=== PATIENT | female | born 1995 | race Caucasian/White ===

== ENCOUNTER 2016-10-04 13:36 | Outpatient (CLI) | payer OTHER ==
--- NOTE | 2016-10-04 15:53 | DIAGNOSTIC IMAGING REPORT ---
PROCEDURE: US 1ST TRIMESTER INDICATION: ob dates TECHNIQUE: Powell scale, color, and spectral Doppler transabdominal sonographic images of the first trimester gravid uterus were obtained. COMPARISON: None. FINDINGS: TRANSABDOMINAL SCANS: The gravid uterus is anteverted in position and contains a fundal gestational sac with a moderate residual response. No perigestational hemorrhage. The cervix is closed. A pole with an average crown-rump length of 30 mm is present. There is detectable cardiac activity in the fetus in a rate of 182 beats per minute. A yolk sac was visible. IMPRESSION: 1. Single living intrauterine with gestational age of 9 weeks and 6 days and estimated due date of 05/03/2017 2. Closed cervix and no perigestational hemorrhage.
== END 2016-10-04 23:00 ==
LOC: US SRH 13:36
DX: Z34.91 Encounter for supervision of normal pregnancy, unspecified, first trimester (principal); Z3A.09 9 weeks gestation of pregnancy

== ENCOUNTER 2016-11-16 15:48 | Observation (INO) | payer OTHER ==
[~2016-11-16] VITALS: Ht 162.6 cm; Wt 56.5 kg
--- NOTE | 2016-11-16 18:37 | DIAGNOSTIC IMAGING REPORT ---
PROCEDURE: US ABDOMEN ULTRASOUND-COMPLETE INDICATION: PAIN TECHNIQUE: Powell scale and color Doppler sonographic images of the abdomen were obtained without comparison. COMPARISON: OB ultrasound 10/04/16 FINDINGS: The liver is normal in size, contour, and echotexture. No mass or intrahepatic biliary dilatation. The gallbladder is normal without stones or sludge. The wall is normal thickness measuring 2.1 mm No pericholecystic fluid or Greenfield sign. The extrahepatic common duct is normal measuring 1.3 mm The visualized pancreas is normal without ductal dilatation or peripancreatic fluid collection. The abdominal aorta is normal in its course and caliber. The retrohepatic inferior vena cava is patent. There is appropriate hepatopetal flow in the portal vein. The right kidney measures 10.7 cm in length. The left kidney measures 11.5 cm in length. Both kidneys demonstrate normal morphology and cortical thickness without hydronephrosis, cyst, solid mass, or shadowing calculus. Color Doppler imaging demonstrates normal blood flow in each kidney. The spleen is normal in size measuring 10.2 cm in length. There is no perihepatic or perisplenic ascites. IMPRESSION: 1. Normal abdominal ultrasound.
--- NOTE | 2016-11-16 18:52 | ED NURSING NOTES ---
Clinical Report - Nurses [facility] [address] [place] [address] 11/16/2016 15:47 Patient: CLIFFORD CHI TRIAGE Triage time 16:01. Acuity: LEVEL 3. Chief Complaint: ABDOMINAL PAIN, NAUSEA and VOMITING. 16:01 11/16/16. 16:11/16/16. Alert. SEPSIS SCREEN: Sepsis Screen. Negative (no infection suspected/documented). --16:06 Gopal Caceres R.N. 16:01 11/16/16. BP: 126/86. HR: 99. RR: 20. O2 saturation: 100% on room air. Temp: 98.9 F (oral). Pain level now: 610. --16:06 Gopal Caceres R.N. Weight: 54.4 kg stated. Height/Length: 64 inches Per Patient. BMI: 20.6. --16:02 Gopal Caceres R.N. Medications Oral. --16:04 Gopal Caceres R.N. Doxepin HCl Oral. --16:09 Gopal Caceres R.N. Medication/allergy information source: the patient and patient's family. --16:06 Gopal Caceres R.N. Allergies No Known Drug Allergy. --16:03 Gopal Caceres R.N. History Arrived by private vehicle. Historian: family. Accompanied by family. Primary physician (Bita Mcdaniel-PCP). 16:01 11/16/16. ( Since 0300). She has had nausea, vomiting and diarrhea. Treatment TAPE WEAVER: None. PAST MEDICAL HX: Immunizations: up-to-date. Last normal menstrual period- End of Jun 2016. Currently : 16 weeks. SOCIAL HX: Never smoker. History of heavy drug use: marijuana. Recently used drugs just prior to arrival. No alcohol use. No recent travel. She has had contact with a sick family member. No infectious disease exposure. ABUSE ASSESSMENT: No report of abuse. FALL RISK ASSESSMENT: Fall risk assessment completed. No fall risk identified. NUTRITIONAL RISK ASSESSMENT: The nutritional risk assessment revealed no deficiencies. FUNCTIONAL ASSESSMENT: Functional assessment: no impairments noted. LEARNING NEEDS ASSESSMENT: The learning needs assessment revealed no barriers. SKIN INTEGRITY ASSESSMENT: Skin integrity risk assessment completed. No skin integrity risk identified. --16:06 Gopal Caceres R.N. PROBLEMS: Hypokalemia. Vomiting. Anxiety Reaction. Immunizations. --16:04 Gopal Caceres R.N. ADDITIONAL SURGERIES: no known surgeries. Assessment 16:11/16/16. --16:06 Gpoal Caceres R.N. Interventions 16:11/16/16. 16:11/16/16. ID and allergy band on patient. To treatment room. --16:06 Gopal Caceres R.N. PHYSICAL ASSESSMENT 16:11/16/16. Ambulatory to room. GENERAL / NEURO / PSYCH: Alert. Oriented X 4. Appears in pain. RESPIRATORY: Respirations not labored. CVS: Capillary refill less than 2 seconds. SKIN: Skin is warm and dry. --16:05 Gopal Caceres R.N. NURSING PROGRESS NOTES 16:11/16/16. The plan of care for this patient has been created. Patient gowned. Head of bed elevated. Reassurance given. Call light placed in reach. Side rails up x 2. Bed placed in lowest position. Brakes of bed on. --16:05 Gopal Caceres R.N. 16:11/16/16. Patient ready for evaluation- chart flagged and ED physician notified. --16:05 Gopal Caceres R.N. 16:11/16/2016 Site #1 started via IV in the right hand with an 20g angiocath, with aseptic technique and good blood return; one attempt. Blood drawn: rainbow set. Labeled in the presence of the patient and sent to the lab. Saline lock flushed with 10 mL saline. --16:17 Gopal Caceers R.N. 16:11/16/2016 Started bag #1 1000 mL IV Fluids IV NS (Saline); at 1000 mL/hr over 1 hour(s) via site #1. Allergies verified and confirmed 5 rights. IV patency established. IV site checked: no pain, redness, or swelling. IV flushed thoroughly pre- and post-medication administration. Completed per protocol. --16:17 Gopal Caceres R.N. 16:24 11/16/2016 Zofran (Ondansetron HCl) IVP 4 mg given over 2 minute(s) via site #1. Allergies verified and confirmed 5 rights. IV patency established. IV site checked: no pain, redness, or swelling. IV flushed thoroughly pre- and post-medication administration. IVP given by RN. --16:24 Gopal Caceres R.N. 16:24 11/16/16. ( FHT-160). --16:24 Gopal Caceres R.N. 16:58 11/16/2016 Ativan (LORazepam) IVP 0.5 mg given over 2 minute(s) via site #1. Allergies verified, confirmed 5 rights and sedative warning given to the patient. IV patency established. IV site checked: no pain, redness, or swelling. IV flushed thoroughly pre- and post-medication administration. IVP given by RN. --16:58 Gopal Caceres R.N. 16:58 11/16/2016 IV Fluids IV NS Discontinued: bag #1 infused. Total amount infused: 1000 mL. IV patency established. IV site checked: no pain, redness, or swelling. IV flushed thoroughly. --16:58 Gopal Caceres R.N. 16:59 11/16/2016 Started bag #2 1000 mL IV Fluids IV NS (Saline); at 1000 mL/hr over 1 hour(s) via site #1. Allergies verified and confirmed 5 rights. IV patency established. IV site checked: no pain, redness, or swelling. IV flushed thoroughly pre- and post-medication administration. Completed per protocol. --16:59 Gopal Caceres R.N. 17:00 11/16/16. BP: 117/72. HR: 91. RR: 18. O2 saturation: 100% on room air. Temp: 97.9 F (oral). --17:01 Gopal Caceres R.N. 17:01 11/16/16. --17:01 Gopal Caceres R.N. 17:48 11/16/2016 Ativan (LORazepam) IVP 0.5 mg given over 2 minute(s) via site #1. Allergies verified, confirmed 5 rights and sedative warning given. IV patency established. IV site checked: no pain, redness, or swelling. IV flushed thoroughly pre- and post-medication administration. IVP given by RN. --17:48 Gopal Caceres R.N. 17:48 11/16/2016 Zofran (Ondansetron HCl) IVP 4 mg given over 2 minute(s) via site #1. Allergies verified and confirmed 5 rights. IV patency established. IV site checked: no pain, redness, or swelling. IV flushed thoroughly pre- and post-medication administration. IVP given by RN. --17:48 Gopal Caceres R.N. 17:48 11/16/16. BP: 115/72. HR: 82. RR: 13. O2 saturation: 100% on room air. Temp: 98.5 F (oral). --17:48 Gopal Caceres R.N. 17:48 11/16/16. --17:48 Gopal Caceres R.N. 17:49 11/16/16. Patient and family informed about reason for wait and about plan of care. --17:49 Gopal Caceres R.N. 17:50 11/16/16. Pulse oximeter and NIBP monitor placed on patient; monitor alarms on. --17:50 Gopal Caceres R.N. 17:57 11/16/16. Patient and family informed about reason for wait and about plan of care. Patient waiting for diagnostic study to be done (US). --17:57 Gopal Caceres R.N. 18:26 11/16/16. ( US completed). --18:26 Gopal Caceres R.N. 18:32 11/16/16. BP: 109/72. HR: 91. RR: 14. O2 saturation: 100% on room air. --18:33 Gopal Caceres R.N. 18:33 11/16/16. --18:33 Gopal Caceres R.N. 18:33 11/16/16. Reassessment after medication administered. She is calm and resting quietly. Overall patient status- she states feels better. --18:33 Gopal Caceres R.N. 18:48 11/16/16. Patient informed about reason for wait and about plan of care (pt to be admitted for appendicitis). --18:49 Gopal Caceres R.N. 18:49 11/16/16. Patient waiting for admit bed. --18:49 Gopal Caceres R.N. 18:50 11/16/16. ( After meds, pt is sleeping on and off. Pt appears to be more comfortable, pt is sleeping on and off, Call light within reach.). --18:50 Gopal Caceres R.N. 18:50 11/16/16. Reassessment after medication administered. She is resting quietly and sleeping and has had no adverse reaction. Overall patient status is improved- she states feels better. --18:50 Gopal Caceres R.N. 18:51 11/16/16. ( Pt to call friend to update on pts status that she is going to be admitted.). --18:51 Gopal Caceres R.N. ( pt ambulates to restroom). --19:07 Kristin Mccormack R.N. 19:08 11/16/16. Care transferred and report given (Rose PEREYRA). --19:08 Gopla Caceres R.N. 20:08 11/16/2016 Ertapenem IVP 1 gm given over 30 minute(s) via site #1. Allergies verified and confirmed 5 rights. IV patency established. IV site checked: no pain, redness, or swelling. IV flushed thoroughly pre- and post-medication administration. IVP given by RN. --20:08 Shar Thompson 20:16 11/16/2016 IV Fluids IV NS Discontinued: infused upon discharge. Total amount infused: 1000 mL. IV patency established. IV site checked: no pain, redness, or swelling. IV flushed thoroughly. --20:16 Shar Thompson ( antibiotics complete at this time). --20:30 Shar Thompson DISPOSITION / DISCHARGE Report was given to a nurse via a phone call. Report included patient's care, treatment, medications, reviewed medication reconcilliation, and condition (including any recent changes or anticipated changes). All questions were answered. Report was acknowledged and care was transferred. --20:18 Shar Thompson 20:18 11/16/2016 Site #[address] upon admission; patent, no pain and no signs of infection or infiltration. --20:18 Shar Thompson Admitted to Acute Care. --20:18 Shar Thompson Transported via wheelchair by transport team. --20:21 Shar Thompson 20:21 11/16/16. BP: 112/67. HR: 72. RR: 18. O2 saturation: 99%. Temp: deferred. Pain level now: 09/30. --20:21 Shar Thompson Departure time: 20:38. --20:38 Shar Thompson Locked/Released at 11/16/2016 20:39 by Shar Thompson
--- NOTE | 2016-11-16 18:52 | ED ORDER SUMMARY ---
..... Patient: CLIFFORD CHI OrderSheet [facility] VisitID: [id number] [place] [address] 21y, F Registration Date/Time: 11/16/2016 ORDER SHEET Weight: 54.4 kg (stated) Allergies: No Known Drug Allergy GENERAL ORDERS: UA-Culture if indicated Urgent (16:17 11/16/2016 JBoardley R.N. per protocol) (Ack 16:19 KHoerner) (16:23 JBoardley R.N.) Urine Urgent (16:17 11/16/2016 JBoardley R.N. per protocol) (Ack 16:19 KHoerner) (16:23 JBoardley R.N.) CBC w Diff Urgent (16:17 11/16/2016 JBoardley R.N. per protocol) (Ack 16:19 SOFIYAoerner) (16:23 JBoardley R.N.) CMP Urgent (16:17 11/16/2016 JBoardley R.N. per protocol) (Ack 16:19 SOFIYAoerner) (16:23 JBoardley R.N.) Heart Tones (16:23 11/16/2016 JBoardley R.N. verbal order read back to Adolph Banks) (16:23 JBoardley R.N.) Serum Quantitative Urgent (17:34 11/16/2016 Adolph Banks) (Ack 17:48 SOFIYAoerolando) (17:49 JBoardley R.N.) US Abdomen Complete (Yes) Urgent (17:49 11/16/2016 Adolph Banks) (Ack 17:53 SOFIYAoerolando) (18:26 JBoardley R.N.) MEDICATION ORDERS: IV FLUIDS: IV NS : initial bolus none -, then 1000 mL/hr for X1 (NOW) (16:17 11/16/2016 JBoardley R.N. per protocol) (16:17 JBoardley R.N.) Zofran IV 4 mg (NOW) (16:23 11/16/2016 JBoardley R.N. verbal order read back to Adolph Banks) (16:24 Alice R.N.) Ativan IV 0.5 mg (HIGH ALERT MEDICATION, NOW) (16:53 11/16/2016 Adolph Banks) (16:58 JBoardley R.N.) IV NS : initial bolus none -, then 1000 mL/hr for X1 (NOW); Leighton (16:58 11/16/2016 JBoardley R.N. per protocol) (16:59 JBoardley R.N.) Ativan IV 0.5 mg (HIGH ALERT MEDICATION, NOW) (17:41 11/16/2016 Adolph Banks) (Ack 17:47 JBoardley R.N.) (17:48 JBoardley R.N.) Zofran IV 4 mg (NOW) (17:41 11/16/2016 Adolph Banks) (Ack 17:47 JBoardley R.N.) (17:48 JBoardley R.N.) Ertapenem IV 1 gm (NOW) (20:07 11/16/2016 Annette Myles written order Adolph Banks) (20:08 nAnette Myles) Orders per Penology Professor: ORDER SHEET NOTES: [Electronically signed by Rose Moody R.N. (20:39 11/16/2016)] [Electronically signed by Benji Carrasco Dr. (20:52 11/16/2016)] [Electronically locked/signed by Rose Moody R.N. (20:39 11/16/2016)]
--- NOTE | 2016-11-16 18:52 | ED ORDER SUMMARY ---
..... Patient: CLIFFORD CHI OrderSheet [facility] VisitID: [id number] [place] [address] 21y, F Registration Date/Time: 11/16/2016 ORDER SHEET Weight: 54.4 kg (stated) Allergies: No Known Drug Allergy GENERAL ORDERS: UA-Culture if indicated Urgent (16:17 11/16/2016 JBoardley R.N. per protocol) (Ack 16:19 KHoerner) (16:23 JBoardley R.N.) Urine Urgent (16:17 11/16/2016 JBoardley R.N. per protocol) (Ack 16:19 KHoerner) (16:23 JBoardley R.N.) CBC w Diff Urgent (16:17 11/16/2016 JBoardley R.N. per protocol) (Ack 16:19 SOFIYAoerner) (16:23 JBoardley R.N.) CMP Urgent (16:17 11/16/2016 JBoardley R.N. per protocol) (Ack 16:19 SOFIYAoerner) (16:23 JBoardley R.N.) Heart Tones (16:23 11/16/2016 JBoardley R.N. verbal order read back to Adolph Banks) (16:23 JBoardley R.N.) Serum Quantitative Urgent (17:34 11/16/2016 Adolph Banks) (Ack 17:48 SOFIYAoerolando) (17:49 JBoardley R.N.) US Abdomen Complete (Yes) Urgent (17:49 11/16/2016 Adolph Banks) (Ack 17:53 SOFIYAoerolando) (18:26 JBoardley R.N.) MEDICATION ORDERS: IV FLUIDS: IV NS : initial bolus none -, then 1000 mL/hr for X1 (NOW) (16:17 11/16/2016 JBoardley R.N. per protocol) (16:17 JBoardley R.N.) Zofran IV 4 mg (NOW) (16:23 11/16/2016 JBoardley R.N. verbal order read back to Adolph Banks) (16:24 Alice R.N.) Ativan IV 0.5 mg (HIGH ALERT MEDICATION, NOW) (16:53 11/16/2016 Adolph Banks) (16:58 JBoardley R.N.) IV NS : initial bolus none -, then 1000 mL/hr for X1 (NOW); Leighton (16:58 11/16/2016 JBoardley R.N. per protocol) (16:59 JBoardley R.N.) Ativan IV 0.5 mg (HIGH ALERT MEDICATION, NOW) (17:41 11/16/2016 Adolph Banks) (Ack 17:47 JBoardley R.N.) (17:48 JBoardley R.N.) Zofran IV 4 mg (NOW) (17:41 11/16/2016 Adolph Banks) (Ack 17:47 JBoardley R.N.) (17:48 JBoardley R.N.) Ertapenem IV 1 gm (NOW) (20:07 11/16/2016 Annette Myles written order Adolph Banks) (20:08 Annette Myles) Orders per Rasper Machine Operator: ORDER SHEET NOTES: [Electronically signed by Rose Moody R.N. (20:39 11/16/2016)] [Electronically signed by Benji Carrasco Dr. (20:52 11/16/2016)] [Electronically locked/signed by Rose Moody R.N. (20:39 11/16/2016)]
--- NOTE | 2016-11-16 18:52 | ED CLINICAL REPORT ---
Clinical Report - Physicians/Mid Levels [facility] [address] [place] [address] 11/16/2016 15:47 Patient: CLIFFORD CHI Time Seen: 16:02; initial patient contact. Arrived- By private vehicle. Historian- patient. HISTORY OF PRESENT ILLNESS Chief Complaint: VOMITING and DIARRHEA. This started last night and is still present (persistent). It was abrupt in onset and has been intermittent. The patient has had nausea, vomiting and diarrhea. No black stools or bloody stools. She has had moderate, crampy, intermittent abdominal pain. The pain is described as located in the central area of the abdomen and associated with nausea, vomiting and diarrhea. No radiation of abdominal pain to the back. The illness is described as moderate. Similar symptoms previously: Many times. Recent medical care: Not recently seen/assessed. REVIEW OF SYSTEMS No fever or difficulty with urination. All systems otherwise negative, except as recorded above. PAST HISTORY Hypokalemia. Vomiting. Anxiety Reaction. SOCIAL HISTORY Never smoker. History of drug use: marijuana. Recently used drugs today. No alcohol use. ADDITIONAL NOTES The nursing notes have been reviewed. PHYSICAL EXAM Vital Signs: 11/16/2016 16:01 BP: 126/86. HR: 99. RR: 20. O2 saturation: 100%. Temp: 98.9 F. Pain level now: 6/10. Have been reviewed as normal. Appearance: Alert. Oriented X3. Patient in mild distress. Eyes: Eyes normal inspection. ENT: Dry mucous membranes present. CVS: Normal heart rate and rhythm. Heart sounds normal. Respiratory: No respiratory distress. Breath sounds normal. Abdomen: Soft. Mild tenderness in the periumbilical area and suprapubic area with guarding present. No rebound tenderness or Greenfield's, obturator or psoas sign present. Bowel sounds normal. No organomegaly. No mass. Back: Normal inspection. No CVA tenderness. Skin: Skin warm and dry. Normal skin color. No rash. Extremities: No lower extremity edema. Neuro: Oriented X 3. LABS, X-RAYS, AND EKG Abdominal Sonogram: Normal study. The gallbladder is normal. Common duct is normal. Normal liver. Pancreas normal. Aorta normal. Kidney normal. Spleen normal. No free fluid. (Appendix not visualized.). The study was interpreted by the radiologist and discussed with the radiologist. Interpretation time: 18:46. Laboratory Tests: UA-Culture if indicated: (TRISTAN: 11/16/2016 16:49) ( [facility] 11/16/2016 17:42) Final results Test Result Flag Units (Reference) URINE COLOR YELLOW URINE APPEARANCE CLEAR URINE GLUCOSE NEGATIVE (NEGATIVE) URINE BILIRUBIN NEGATIVE (NEGATIVE) URINE KETONE 3+ (NEGATIVE) URINE SPECIFIC GRAVITY 1.020 (1.010-1.030) URINE PH 7.5 (5.0-8.0) URINE PROTEIN 1+ (NEGATIVE) URINE UROBILINOGEN 0.2 EU/dL (0.2-1.0) URINE NITRITE NEGATIVE (NEGATIVE) URINE BLOOD NEGATIVE (NEGATIVE) URINE LEUK ESTERASE NEGATIVE (NEGATIVE) URINE RBC NONE SEEN rbc/hpf (0-1) URINE WBC 0-1 wbc/hpf (0-1) URINE EPITHELIAL CELLS 1-3 EPI/hpf (0-5) URINE BACTERIA TRACE (<1+) (NONE SEEN) URINE COMMENT CULT NOT INDICATED 1+ MUCUSURINE CULTURES ARE SET-UP BASED ON THE FOLLOWING CRITERIA:POSITIVE NITRITEPOSITIVE LEUKOCYTE ESTERASEGREATER THAN 10 WHITE BLOOD CELLSMODERATE (2+) OR GREATER BACTERIA Urine: (TRISTAN: 11/16/2016 16:49) ( [facility] 11/16/2016 17:21) Final results Test Result Flag Units (Reference) URINE POSITIVE CBC w Diff: (TRISTAN: 11/16/2016 16:00) ( [facility] 11/16/2016 16:27) Final results Test Result Flag Units (Reference) WHITE BLOOD COUNT 16.8 H K/uL (4.5-11.5) RED BLOOD COUNT 4.11 M/uL (4.00-5.20) HEMOGLOBIN 12.2 gm/dL (12.0-16.0) HEMATOCRIT 36.1 % (36.0-46.0) MEAN CELL VOLUME 88 fL (80-100) MEAN CORPUSCULAR HGB 30 pg (26-34) MEAN CORPUSCULAR HGB CONC 34 g/dL (31-37) RED CELL DISTRIBUTION WIDTH 15.2 H % (11.6-14.8) PLATELET COUNT 230 K/uL (150-400) NEUTROPHIL % 91.9 H % (50-75) LYMPH % 7.2 L % (25-40) MONO % 0.8 L % (3-14) EOSINOPHIL % 0 % (0-4) BASOPHIL % 0.1 % (0-2) CMP: (TRISTAN: 11/16/2016 16:00) ( MsgRcvd 11/16/2016 16:39) Final results Test Result Flag Units (Reference) GLUCOSE 109 mg/dL (70-110) BUN 6 L mg/dL (7-18) CREATININE 0.6 mg/dL (0.6-1.3) Estimated GFR >60 mL/min Estimated GFR- >60 mL/min Note: Persistent reduction over 3 months in eGFR<60 mL/min/1.73 m2 defines CKD. Patients with eGFR values>=60 mL/min/1.73 m2 may also have CKD if evidence ofpersistent proteinuria. Additional information may be foundat www.kidney.org. SODIUM 139 mmol/L (136-145) POTASSIUM 3.7 mmol/L (3.5-5.1) CHLORIDE 102 mmol/L (98-107) CARBON DIOXIDE 21 mmol/L (21-32) CALCIUM 8.8 mg/dL (8.5-10.1) TOTAL PROTEIN 7.6 g/dL (6.4-8.2) ALBUMIN 3.7 g/dL (3.3-5.0) BILIRUBIN, TOTAL 0.3 mg/dL (0.0-1.0) ALKALINE PHOSPHATASE 62 U/L (46-116) AST (SGOT) 12 L U/L (15-37) ALT (SGPT) 18 U/L (12-78) . PROGRESS AND PROCEDURES Discussed case with on-call health care provider, (call returned 18:40 Dr. Ramirez. Discussed nl U/S, he will place in obs and start his appy orders and consult Ob.). Reviewed test results and need for additional work-up. Orders dictated to me. Health care provider will see patient in hospital. Discussed case with on-call health care provider, (call returned 18:50 Dr. Aliyah Mir, made aware he was consulted by Dr. Ramirez on the case.). Reviewed test results and need for additional work-up. Health care provider will see patient in hospital. Consult obtained from surgery. call returned 17:52 Dr. Ramirez, recommended U/S. Disposition: Observation in Acute Care. INSTRUCTIONS Follow-up: Screening today revealed the patient's blood pressure to be in the normal range. (Electronically signed by Benji Carrasco Dr. 11/16/2016 20:52)
--- NOTE | 2016-11-16 20:26 | History & Physical Report ---
Admission Admit Date 11/16/16 Information Source Information Source: Self Reliability: Good History Chief Complaint Nausea and vomiting History of Present Illness 21-year-old female 1 para 0 AB 0 who is 16 weeks gestation. Presently not being followed by SAMEER Singh Who presented to the emergency room with a two- day history of severe nausea and vomiting. Patient states that she cannot keep anything down. Patient states that she lost weight. Patient states that she's had some diarrhea today. Patient states that she has no particular abdominal pain just soreness. Patient states that it does not hurt to walk or cough or move around. Patient states that she is very anxious. Patient is quite tearful during our conversation. We were asked to evaluate the patient because of her elevated white count and rule out appendicitis. An ultrasound was ordered by the emergency room department. Unfortunately the salvage winder and inspector did not evaluate the right lower quadrant apparently and the appendix was not visualized. MEDICAL/SURGICAL HISTORY: [place] teeth extraction. Patient is presently not being followed by a ferry pilot for her . FAMILY HISTORY: Mother is in her mid 40s in good health Father in his early 50s in good health. 3 brothers 2 sisters alive and well Patient History 1. 2. Leukocytosis 3. Abdominal pain Social History The patient is single. This is her first . Patient does not smoke. Does not drink alcohol. Patient smokes marijuana on a daily basis. Patient is presently unemployed. Patient presently living at home with her parents. Medications and Allergies Medications Patient is on an antidepressant medication Current Medications Sig/Johnny Start time Last Medication Dose Route Stop Time Status Admin Metoclopramide HCl 10 MG Q6HR 11/17 0000 AC IV Famotidine/Sodium 50 ML Q12HR 11/16 2099 AC Chloride IV Potassium Chloride 20 MEQ Q7H 11/16 2029 AC Lactated Ringer's 1,000 ML IV Meperidine HCl 12.5 MG Q30MIN PRN 11/16 1944 AC IV Ondansetron HCl 4 MG Q6H PRN 11/16 1944 AC IV Allergies Coded Allergies: NKA (11/16/16) Review of Systems Other Ab0 menarche age 11. According to the patient her last menstrual cycle was in June 2016. Patient has not yet had a Pap smear. Patient denies any history of of hepatitis, jaundice, rheumatic fever, heart murmurs requiring antibodies, or bleeding tendencies. Patient is a long-standing history of anxiety and depression. Physical Exam Vital Signs / I&Os Blood pressure 126/86 pulse 99 respirations 20 temperature 90.8 in the emergency room General Appearance Alert, Oriented X3, Cooperative, No acute distress, patient seems very anxious and tearful. HEENT PERRLA, EOMI Lungs Clear to auscultation Neck No JVD, No masses, No thyromegaly Cardiovascular Regular rate and rhythm Abdomen Normal bowel sounds, Soft, Nondistended. Palpable gravid uterus approximately 2-3 fingerbreadths below the umbilicus Tenderness to very deep palpation right lower quadrant. No guarding Negative Rovsing sign. Extremities No edema, no cyanosis Skin no cyanosis Neurological No lateralizing signs Psych/Mental Status anxious LAB Results Laboratory Tests 11/16 11/16 11/16 11/16 1600 1649 1649 1833 Chemistry Plasma Sodium (136 - 145 mmol/L) 139 Plasma Potassium (3.5 - 5.1 mmol/L) 3.7 Plasma Chloride (98 - 107 mmol/L) 102 CO2 (Enzymatic) (21 - 32 mmol/L) 21 BUN (7 - 18 mg/dL) 6 Creatinine (0.6 - 1.3 mg/dL) 0.6 Est GFR ( Amer) (mL/min) >60 Est GFR (Non-Af Amer) (mL/min) >60 Glucose (70 - 110 mg/dL) 109 Plasma Calcium (8.5 - 10.1 mg/dL) 8.8 Total Bilirubin (0.0 - 1.0 mg/dL) 0.3 AST (15 - 37 U/L) 12 ALT (12 - 78 U/L) 18 Alkaline Phosphatase (46 - 116 U/L) 62 Total Protein (6.4 - 8.2 g/dL) 7.6 Albumin (3.3 - 5.0 g/dL) 3.7 Beta HCG, Quant (mIU/mL) 16997 Hematology WBC (4.5 - 11.5 K/uL) 16.8 RBC (4.00 - 5.20 M/uL) 4.11 Hgb (12.0 - 16.0 gm/dL) 12.2 Hct (36.0 - 46.0 %) 36.1 MCV (80 - 100 fL) 88 MCH (26 - 34 pg) 30 RDW (11.6 - 14.8 %) 15.2 Neut % (Auto) (50 - 75 %) 91.9 Lymph % (Auto) (25 - 40 %) 7.2 Benson % (Auto) (3 - 14 %) 0.8 Eos % (Auto) (0 - 4 %) 0 Baso % (Auto) (0 - 2 %) 0.1 Plt Count, EDTA (150 - 400 K/uL) 230 PUBS MCHC (31 - 37 g/dL) 34 Urines Urine Color YELLOW Urine Appearance CLEAR Urine pH (5.0 - 8.0) 7.5 Ur Specific [place] (1.010 - 1.030) 1.020 Urine Protein (NEGATIVE) 1+ Urine Ketones (NEGATIVE) 3+ Urine Blood (NEGATIVE) NEGATIVE Urine Nitrite (NEGATIVE) NEGATIVE Urine Bilirubin (NEGATIVE) NEGATIVE Urine Urobilinogen (0.2 - 1.0 EU/dL) 0.2 Ur Leukocyte Esterase (NEGATIVE) NEGATIVE Urine RBC (0 - 1 rbc/hpf) NONE SEEN Urine WBC (0 - 1 wbc/hpf) 0-1 Ur Epithelial Cells (0 - 5 EPI/hpf) 1-3 Urine Bacteria (NONE SEEN) TRACE (<1+) Urine Glucose (NEGATIVE) NEGATIVE Urine Test POSITIVE Urine Comment CULT NOT INDICATED Imaging Ultrasound of the abdomen intraoperative as normal. It is unclear whether the patient right lower quadrant was visualized and inspected for acute appendicitis. Assessment and Plan Problem List 1. Abdominal pain Plan Abdominal pain at this point history and physical examination are consistent with acute appendicitis. We will admit the patient hydrate her and repeat a white count in the morning white count is still elevated , this could be followed by a MRI to rule out appendicitis. 2. Plan 16 week gestation. I have asked the R OB on-call physician to evaluate the patient and perhaps see her in the clinic so that she might obtain OB care. 3. Leukocytosis Plan Leukocytosis perhaps related to her nausea and vomiting/stress. We'll repeat CBC in a.m.
--- NOTE | 2016-11-16 20:28 | History & Physical Report ---
History Chief Complaint Abdominal pain Medications and Allergies Medications Current Medications Sig/Johnny Start time Last Medication Dose Route Stop Time Status Admin Metoclopramide HCl 10 MG Q6HR 11/17 0000 AC 11/17 IV 0036 Famotidine/Sodium 50 ML Q12HR 11/16 2100 AC 11/16 Chloride IV 2216 Potassium Chloride 20 MEQ Q7H 11/16 2029 AC 11/17 Lactated Ringer's 1,000 ML IV 0624 Meperidine HCl 12.5 MG Q30MIN PRN 11/16 1944 IV Ondansetron HCl 4 MG Q6H PRN 11/16 1944 IV Allergies Coded Allergies: NKA (11/16/16)
--- NOTE | 2016-11-16 20:52 | ED MED RECONCILIATION SUMMARY ---
Patient: CLIFFORD CHI Medication Reconciliation Report [facility] VisitID: [id number] [address] [place] [address] 21y, F Registration Date/Time: 11/16/2016 Weight: 54.4 kg Height/Length: 64 in. BMI: 20.6 ALLERGIES: No Known Drug Allergy The patient's Home Medications are listed below: THE FOLLOWING MEDICATIONS NEED TO BE RECONCILED: Doxepin HCl Oral Oral The source(s) of the original Home Medication information: patient's family member patient The following Medications were given to the patient in the Emergency Department: IV NS IV Fluids bolus 0, then 1000 mL/hr, administered: 11/16/2016 4:17:00 PM Zofran [IVP] IVP 4 mg, administered: 11/16/2016 4:24:00 PM Ativan [IVP] IVP 0.5 mg, administered: 11/16/2016 4:58:00 PM IV NS IV Fluids bolus 0, then 1000 mL/hr, administered: 11/16/2016 4:59:00 PM Ativan [IVP] IVP 0.5 mg, administered: 11/16/2016 5:48:00 PM Zofran [IVP] IVP 4 mg, administered: 11/16/2016 5:48:00 PM Ertapenem [IVP] IVP 1 gm, administered: 11/16/2016 8:08:00 PM The following Medications were prescribed to the patient: None.
--- NOTE | 2016-11-16 20:52 | ED MAR SUMMARY ---
..... Medication Administration Record [facility] [address] [place] [address] Patient: CLIFFORD CHI Visit ID: [id number] 21y, F Weight: 54.4 kg Height/Length: 64 in BMI: 20.6 ALLERGIES: No Known Drug Allergy Start 16:17 11/16/2016 Gopal Caceres R.N., Stop 16:58 11/16/2016 Gopal Caceres R.N. Medication Administered: IV NS (SALINE), Dose: IV Fluids over 1 hour(s), Rate: 1000 mL/hr, Dispensed: 1000 mL bag, Site: #1 right hand. Medication Ordered: IV NS : initial bolus none -, then 1000 mL/hr for X1 (NOW). Given 16:24 11/16/2016 Gopal Caceres R.N. Medication Administered: ZOFRAN [IVP] (ONDANSETRON HCL), Dose: 4 mg IVP over 2 minute(s), Site: #1 right hand. Medication Ordered: Zofran IV 4 mg (NOW). Given 16:58 11/16/2016 Gopal Caceres R.N. Medication Administered: ATIVAN [IVP] (LORAZEPAM), Dose: 0.5 mg IVP over 2 minute(s), Site: #1 right hand. Medication Ordered: Ativan IV 0.5 mg (HIGH ALERT MEDICATION, NOW). Start 16:59 11/16/2016 Gopal Caceres R.N., Stop 20:16 11/16/2016 Shar Thompson Medication Administered: IV NS (SALINE), Dose: IV Fluids over 1 hour(s), Rate: 1000 mL/hr, Dispensed: 1000 mL bag, Site: #1 right hand. Medication Ordered: IV NS : initial bolus none -, then 1000 mL/hr for X1 (NOW); Leighton. Given 17:48 11/16/2016 Gopal Caceres R.N. Medication Administered: ATIVAN [IVP] (LORAZEPAM), Dose: 0.5 mg IVP over 2 minute(s), Site: #1 right hand. Medication Ordered: Ativan IV 0.5 mg (HIGH ALERT MEDICATION, NOW). Given 17:48 11/16/2016 Gopal Caceres RTeja Medication Administered: ZOFRAN [IVP] (ONDANSETRON HCL), Dose: 4 mg IVP over 2 minute(s), Site: #1 right hand. Medication Ordered: Zofran IV 4 mg (NOW). Given 20:08 11/16/2016 Shar Thompson Medication Administered: ERTAPENEM [IVP], Dose: 1 gm IVP over 30 minute(s), Site: #1 right hand. Medication Ordered: Ertapenem IV 1 gm (NOW).
--- NOTE | 2016-11-16 20:52 | ED DISCHARGE INSTRUCTIONS ---
Patient: CLIFFORD CHI General Instructions [facility] VisitID: [id number] [address] [place] [address] 21y, F Registration Date/Time: 11/16/2016 INSTRUCTIONS Follow-up: Screening today revealed the patient's blood pressure to be in the normal range. (Electronically signed by Benji Carrasco Dr. 11/16/2016 20:52)
--- NOTE | 2016-11-16 20:52 | ED DISCHARGE INSTRUCTIONS ---
Patient: CLIFFORD CHI General Instructions [facility] VisitID: [id number] [address] [place] [address] 21y, F Registration Date/Time: 11/16/2016 INSTRUCTIONS Follow-up: Screening today revealed the patient's blood pressure to be in the normal range. (Electronically signed by Benji Carrasco Dr. 11/16/2016 20:52)
--- NOTE | 2016-11-16 20:52 | ED MAR SUMMARY ---
..... Medication Administration Record [facility] [address] [place] [address] Patient: CLIFFORD CHI Visit ID: [id number] 21y, F Weight: 54.4 kg Height/Length: 64 in BMI: 20.6 ALLERGIES: No Known Drug Allergy Start 16:17 11/16/2016 Gopal Caceres R.N., Stop 16:58 11/16/2016 Gopal Caceres R.N. Medication Administered: IV NS (SALINE), Dose: IV Fluids over 1 hour(s), Rate: 1000 mL/hr, Dispensed: 1000 mL bag, Site: #1 right hand. Medication Ordered: IV NS : initial bolus none -, then 1000 mL/hr for X1 (NOW). Given 16:24 11/16/2016 Gopal Caceres R.N. Medication Administered: ZOFRAN [IVP] (ONDANSETRON HCL), Dose: 4 mg IVP over 2 minute(s), Site: #1 right hand. Medication Ordered: Zofran IV 4 mg (NOW). Given 16:58 11/16/2016 Gopal Caceres R.N. Medication Administered: ATIVAN [IVP] (LORAZEPAM), Dose: 0.5 mg IVP over 2 minute(s), Site: #1 right hand. Medication Ordered: Ativan IV 0.5 mg (HIGH ALERT MEDICATION, NOW). Start 16:59 11/16/2016 Gopal Caceres R.N., Stop 20:16 11/16/2016 Shar Thompson Medication Administered: IV NS (SALINE), Dose: IV Fluids over 1 hour(s), Rate: 1000 mL/hr, Dispensed: 1000 mL bag, Site: #1 right hand. Medication Ordered: IV NS : initial bolus none -, then 1000 mL/hr for X1 (NOW); Leighton. Given 17:48 11/16/2016 Gopal Caceres R.N. Medication Administered: ATIVAN [IVP] (LORAZEPAM), Dose: 0.5 mg IVP over 2 minute(s), Site: #1 right hand. Medication Ordered: Ativan IV 0.5 mg (HIGH ALERT MEDICATION, NOW). Given 17:48 11/16/2016 Gopal Caceres RTeja Medication Administered: ZOFRAN [IVP] (ONDANSETRON HCL), Dose: 4 mg IVP over 2 minute(s), Site: #1 right hand. Medication Ordered: Zofran IV 4 mg (NOW). Given 20:08 11/16/2016 Shar Thompson Medication Administered: ERTAPENEM [IVP], Dose: 1 gm IVP over 30 minute(s), Site: #1 right hand. Medication Ordered: Ertapenem IV 1 gm (NOW).
--- NOTE | 2016-11-16 20:52 | ED MED RECONCILIATION SUMMARY ---
Patient: CLIFFORD CHI Medication Reconciliation Report [facility] VisitID: [id number] [address] [place] [address] 21y, F Registration Date/Time: 11/16/2016 Weight: 54.4 kg Height/Length: 64 in. BMI: 20.6 ALLERGIES: No Known Drug Allergy The patient's Home Medications are listed below: THE FOLLOWING MEDICATIONS NEED TO BE RECONCILED: Doxepin HCl Oral Oral The source(s) of the original Home Medication information: patient's family member patient The following Medications were given to the patient in the Emergency Department: IV NS IV Fluids bolus 0, then 1000 mL/hr, administered: 11/16/2016 4:17:00 PM Zofran [IVP] IVP 4 mg, administered: 11/16/2016 4:24:00 PM Ativan [IVP] IVP 0.5 mg, administered: 11/16/2016 4:58:00 PM IV NS IV Fluids bolus 0, then 1000 mL/hr, administered: 11/16/2016 4:59:00 PM Ativan [IVP] IVP 0.5 mg, administered: 11/16/2016 5:48:00 PM Zofran [IVP] IVP 4 mg, administered: 11/16/2016 5:48:00 PM Ertapenem [IVP] IVP 1 gm, administered: 11/16/2016 8:08:00 PM The following Medications were prescribed to the patient: None.
[2016-11-16 20:58] VITALS: BP 118/77
[2016-11-16] MEDS ORDERED: PRENATAL VITAMINS PO (21:11)
[2016-11-16] MEDS ORDERED: DOXEPIN HCL10 MG PO (21:12)
--- NOTE | 2016-11-16 21:49 | NUR ---
PT ARRIVED TO ROOM 209A AROUND 2044 VIA WHEELCHAIR AND FACILITY TECH ESCORT FROM ED. LOTS OF FAMILY AT BEDSIDE. A&OX4. C/O ABDOMINAL PAIN 09/30 PAIN. C/O NAUSEA WITHOUT EMESIS. ZOFRAN NOT DUE UNTIL 2244. WARM BLANKETS GIVEN. PT REQUESTED TO SHOWER. PERSONAL BELONGINGS IN CLOSET. TM.
[2016-11-16 23:34] VITALS: BP 100/53
--- NOTE | 2016-11-17 02:02 | NUR ---
PT. IS RESTING QUIETLY IN BED AT THIS TIME, IS NOT IN DISTRESS. DENIES NAUSEA/ABDOMINAL PAIN AT THIS TIME. BOYFRIEND IS AT BEDSIDE, PT. HAS BEEN CALM SO FAR THIS SHIFT AND RESTING. ASSESSMENT COMPLETED. IVF RUNNING WITHOUT ISSUES. WCTM.
--- NOTE | 2016-11-17 02:07 | NUR ---
PATIENT'S BOYFRIEND KNOWS THAT IF PT. GETS A ROOM MATE, HE WILL NEED TO LEAVE VISITING HOURS ARE OVER, OR HE CAN STAY IN THE FAMILY/VISITOR WAITING AREA.
[2016-11-17 04:39] VITALS: BP 107/67
--- NOTE | 2016-11-17 06:12 | Progress Note ---
Subjective General 22-year-old female admitted with nausea and vomiting. According to the patient the nausea and vomiting has resolved all with IV hydration. Patient is not experiencing any abdominal pain. Patient is very hungry. Physical Exam Vital Signs / I&Os Vital Signs Date Time Temp Pulse Resp B/P Pulse O2 O2 Flow FiO2 Ox Delivery Rate 11/17 0439 98.1 89 18 107/67 98 Room Air 11/16 2334 85 16 100/53 100 Room Air 11/168 98.1 90 18 118/77 100 Room Air I&O 11/16 0800 11/16 1600 11/17 0000 Intake Total 0 Output Total 375 Balance -375 General Appearance Alert, Oriented X3, No acute distress Lungs Clear to auscultation Neck No JVD Cardiovascular Regular rate and rhythm Abdomen Normal bowel sounds, Soft, No tenderness Extremities No edema Skin warm and dry Neurological No lateralizing signs Psych/Mental Status Mood normal LAB Results Laboratory Tests 11/16 11/16 11/16 11/16 1600 1649 1649 1833 Chemistry Plasma Sodium (136 - 145 mmol/L) 139 Plasma Potassium (3.5 - 5.1 mmol/L) 3.7 Plasma Chloride (98 - 107 mmol/L) 102 CO2 (Enzymatic) (21 - 32 mmol/L) 21 BUN (7 - 18 mg/dL) 6 Creatinine (0.6 - 1.3 mg/dL) 0.6 Est GFR ( Amer) (mL/min) >60 Est GFR (Non-Af Amer) (mL/min) >60 Glucose (70 - 110 mg/dL) 109 Plasma Calcium (8.5 - 10.1 mg/dL) 8.8 Total Bilirubin (0.0 - 1.0 mg/dL) 0.3 AST (15 - 37 U/L) 12 ALT (12 - 78 U/L) 18 Alkaline Phosphatase (46 - 116 U/L) 62 Total Protein (6.4 - 8.2 g/dL) 7.6 Albumin (3.3 - 5.0 g/dL) 3.7 Beta HCG, Quant (mIU/mL) 85833 Hematology WBC (4.5 - 11.5 K/uL) 16.8 RBC (4.00 - 5.20 M/uL) 4.11 Hgb (12.0 - 16.0 gm/dL) 12.2 Hct (36.0 - 46.0 %) 36.1 MCV (80 - 100 fL) 88 MCH (26 - 34 pg) 30 RDW (11.6 - 14.8 %) 15.2 Neut % (Auto) (50 - 75 %) 91.9 Lymph % (Auto) (25 - 40 %) 7.2 [place] % (Auto) (3 - 14 %) 0.8 Eos % (Auto) (0 - 4 %) 0 Baso % (Auto) (0 - 2 %) 0.1 Plt Count, EDTA (150 - 400 K/uL) 230 PUBS MCHC (31 - 37 g/dL) 34 Urines Urine Color YELLOW Urine Appearance CLEAR Urine pH (5.0 - 8.0) 7.5 Ur Specific [place] (1.010 - 1.030) 1.020 Urine Protein (NEGATIVE) 1+ Urine Ketones (NEGATIVE) 3+ Urine Blood (NEGATIVE) NEGATIVE Urine Nitrite (NEGATIVE) NEGATIVE Urine Bilirubin (NEGATIVE) NEGATIVE Urine Urobilinogen (0.2 - 1.0 EU/dL) 0.2 Ur Leukocyte Esterase (NEGATIVE) NEGATIVE Urine RBC (0 - 1 rbc/hpf) NONE SEEN Urine WBC (0 - 1 wbc/hpf) 0-1 Ur Epithelial Cells (0 - 5 EPI/hpf) 1-3 Urine Bacteria (NONE SEEN) TRACE (<1+) Urine Glucose (NEGATIVE) NEGATIVE Urine Test POSITIVE Urine Comment CULT NOT INDICATED 11/17 0525 Hematology WBC (4.5 - 11.5 K/uL) 13.2 RBC (4.00 - 5.20 M/uL) 3.66 Hgb (12.0 - 16.0 gm/dL) 10.9 Hct (36.0 - 46.0 %) 32.0 MCV (80 - 100 fL) 87 MCH (26 - 34 pg) 30 RDW (11.6 - 14.8 %) 15.1 Neut % (Auto) (50 - 75 %) 77.8 Lymph % (Auto) (25 - 40 %) 17.2 [place] % (Auto) (3 - 14 %) 4.7 Eos % (Auto) (0 - 4 %) 0.1 Baso % (Auto) (0 - 2 %) 0.2 Plt Count, EDTA (150 - 400 K/uL) 200 PUBS MCHC (31 - 37 g/dL) 34 Assessment and Plan Problem List 1. Abdominal pain Plan Abdominal pain has resolved. No longer having nausea and vomiting. We'll start feeding today. If patient tolerates will discharge home 2. Plan 16 weeks gestation by history. Patient will need to followup with OB as an outpatient. 3. Leukocytosis Plan Patient's white count is still slightly elevated. But she has stable vital signs and comfortable and hungry I doubt this is an issue at the present time
[2016-11-17 06:40] VITALS: BP 104/69
--- NOTE | 2016-11-17 10:24 | Provider's Discharge Care Plan ---
Problem, Goal, Plan Problem List 1. Abdominal pain Goals: Improve function Instructions: Follow up as directed, Take meds as directed, Stop smoking
--- NOTE | 2016-11-17 10:24 | Provider's Discharge Care Plan ---
Problem, Goal, Plan Problem List 1. Abdominal pain Goals: Improve function Instructions: Follow up as directed, Take meds as directed, Stop smoking
[2016-11-17 10:46] VITALS: BP 104/63
--- NOTE | 2016-11-17 12:24 | NUR ---
PATIENT TOLERATED PO FOODS WITH NO NAUSEA AFTER 1 EPISODE OF NAUSEA THIS A.M., PATIENT REPORTS THAT SHE IS FEELING MUCH BETTER AND IS READY TO COME. PATIENT AND HER BOYFRIEND VERBALIZED UNDERSTANDING OF DC INSTRUCTIONS, REC'D DC PACKET AND STATES THAT SHE HAS NO FURTHER QUESTIONS AT THIS TIME. IV DC'D AND CATHETER TIP INTACT. ESCORTED OUT BY SHIRRER.
--- NOTE | 2016-11-17 19:40 | CONSULTATION REPORT ---
DATE OF CONSULTATION: 11/17/2016 CHIEF COMPLAINT: 1. Nausea and vomiting with a 16-week , suspicious for gastrointestinal etiology HISTORY OF PRESENT ILLNESS: The patient was seen in the emergency department complaining of nausea and vomiting. She was noted to be 16 weeks , coming over from [place]. She is seeing a PA-Amrit there, Kaykay Quezada, for primary care and early . Initial evaluation in the emergency department by physician showed an elevated white count of 16,000-17,000 with a left shift, neutrophils noted, no bands. Dr. Ramirez was assigned the patient and I have requested a consultation. I talked to the patient in the emergency department and later she was transferred to the second floor. This morning, she was evaluated and seen to be doing much better. IMPRESSION: 1. Hpyperemesis gravidarum PLAN: Dr. Ramirez then cleared her and evaluated the patient with some information about and follow up, also types of medicines to take. She has been given some Zofran and information for her diabetes and other supplements, [id number] medications were given to the patient, she understands and she was given information on obstetric clinics including ours, the 3 family practice [facility], as well as other [facility] physicians at the [facility]. The patient was to be discharged home with warnings and precautions by Dr. Ramirez.
--- NOTE | 2016-11-17 19:40 | CONSULTATION REPORT ---
DATE OF CONSULTATION: 11/17/2016 CHIEF COMPLAINT: 1. Nausea and vomiting with a 16-week , suspicious for gastrointestinal etiology HISTORY OF PRESENT ILLNESS: The patient was seen in the emergency department complaining of nausea and vomiting. She was noted to be 16 weeks , coming over from [place]. She is seeing a PA-Amrit there, Kaykay Quezada, for primary care and early . Initial evaluation in the emergency department by physician showed an elevated white count of 16,000-17,000 with a left shift, neutrophils noted, no bands. Dr. Ramirez was assigned the patient and I have requested a consultation. I talked to the patient in the emergency department and later she was transferred to the second floor. This morning, she was evaluated and seen to be doing much better. IMPRESSION: 1. Hpyperemesis gravidarum PLAN: Dr. Ramirez then cleared her and evaluated the patient with some information about and follow up, also types of medicines to take. She has been given some Zofran and information for her diabetes and other supplements, [id number] medications were given to the patient, she understands and she was given information on obstetric clinics including ours, the 3 family practice doctors here in [facility], as well as other [facility] physicians at the [facility]. The patient was to be discharged home with warnings and precautions by Dr. Ramirez.
== END 2016-11-17 12:25 | disposition home or self-care (01) ==
LOC: ED SRH 15:48 → ACUTE2 SRH 19:15 → TRANS SRH 19:15 → ACUTE2 SRH 20:45
PROVIDERS: ADMIT Family Medicine
DX: O99.89 Other specified diseases and conditions complicating pregnancy, childbirth and the puerperium (principal); R10.31 Right lower quadrant pain; O21.9 Vomiting of pregnancy, unspecified; Z3A.16 16 weeks gestation of pregnancy
CPT/HCPCS: 29230; 29243; 29247; 29263; 90004; 90074; 90100; 90197; 93070; 95059

== ENCOUNTER 2016-12-12 13:59 | Outpatient (CLI) | payer OTHER ==
[~2016-12-12 13:59] MED LIST: DOXEPIN HCL10 MG PO; PRENATAL VITAMINS PO
--- NOTE | 2016-12-12 16:04 | DIAGNOSTIC IMAGING REPORT ---
PROCEDURE: US OB DETAILED ANATOMIC INDICATION: ANATOMY TECHNIQUE: Powell scale, color, and spectral Doppler images of the second trimester gravid uterus were obtained. COMPARISON: OB ultrasound 10/04/2016 FINDINGS: A single living intrauterine is in vertex presentation. There is regular cardiac activity at a rate of 153 beats per minute. The placenta is anterior and away from the internal cervical os. The cervix is closed measuring approximately 3.4 cm in length. The amniotic fluid volume is subjectively normal. Biparietal diameter 4.7 cm at 20 weeks and 1 day Head circumference 16.6 cm of 19 weeks and 2-day Abdominal circumference 14.8 cm at 20 weeks and 1 day Femur length 2.9 cm of 19 weeks and 0-day Head to abdominal circumference ratio and femur length to abdominal circumference ratios are normal. Estimated weight 302 g Composite gestational age 19 weeks and 5 days, BECCA 05/03/2017 There was visualization of a number of normal structures including the intracranial contents, facial features, nuchal region, spine, four-chamber heart and outflow tracts to the extent that could be visualized, diaphragm, fluid-filled stomach, kidneys, abdomen, urinary bladder, upper and lower extremities, and genitals. A three-vessel umbilical cord, normal and placental cord insertion sites were seen. IMPRESSION: 1. Single living intrauterine with a composite gestational age of 19 weeks and 5 days, BECCA 05/03/2017 2. Symmetric and normal anatomy.
== END 2016-12-12 23:00 ==
LOC: US SRH 13:59
DX: Z34.92 Encounter for supervision of normal pregnancy, unspecified, second trimester (principal); Z3A.19 19 weeks gestation of pregnancy

== ENCOUNTER 2016-12-31 07:22 | Emergency (ER) | payer OTHER ==
--- NOTE | 2016-12-31 09:21 | ED ORDER SUMMARY ---
..... Patient: CLIFFORD CHI OrderSheet [facility] VisitID: [id number] [place] [address] 21y, F Registration Date/Time: 12/31/2016 ORDER SHEET Weight: 54.4 kg (stated) Allergies: No Known Drug Allergy GENERAL ORDERS: US OB Limited (> 6 mo ago) Urgent (07:54 12/31/2016 Terry Banks) (Ack 8:00 TBergley) (9:24 LSullivan R.N.) CBC w Diff Urgent (07:12/31/2016 Terry Banks) (Ack 8:00 TBergley) (8:13 LSullivan R.N.) CMP Urgent (:12/31/2016 Terry Banks) (Ack 8:00 TBergley) (8:13 LSullivan R.N.) UA-Culture if indicated Urgent (:12/31/2016 Terry Banks) (Ack 8:00 TBergley) (8:13 LSullivan R.N.) Serum Quantitative Urgent (:12/31/2016 Terry Banks) (Ack 8:00 TBergley) (8:13 LSullivan R.N.) Lipase Urgent (:12/31/2016 Terry Banks) (Ack 8:00 TBergley) (8:13 LSullivan R.N.) MEDICATION ORDERS: IV FLUIDS: Zofran IV 4 mg (NOW) (07:57 12/31/2016 Terry Banks) (8:12 LSullivan R.N.) Ativan IV 1 mg (HIGH ALERT MEDICATION, NOW) (07:58 12/31/2016 Terry Banks) (8:13 LSullivan R.N.) IV NS : initial bolus 1000 mL (1000 mL/hr), then none - for X1 (NOW) (07:58 12/31/2016 Terry Banks) (8:12 LSullivan R.N.) Reglan IV 10 mg (NOW) (09:24 12/31/2016 Abby JACOBO) (9:40 LSullivan R.N.) Zofran IV 4 mg (NOW) (09:24 12/31/2016 Abby JACOBO) (9:41 Edu Myles) ORDER SHEET NOTES: [Electronically signed by Eboni Walters R.N. (:44 12/31/2016)] [Electronically signed by Stevan Willams DO (10:28 12/31/2016)] [Electronically locked/signed by Eboni Walters R.N. (:44 12/31/2016)]
--- NOTE | 2016-12-31 09:21 | ED CLINICAL REPORT ---
Clinical Report - Physicians/Mid Levels [facility] [address] [place] [address] 12/31/2016 7:23 Patient: CLIFFORD CHI Time Seen: 0744. Arrived- By private vehicle. Historian- patient. HISTORY OF PRESENT ILLNESS Chief Complaint: VOMITING. This started yesterday and is still present and worsening. It was abrupt in onset and has been constant but is not gone now. No recent travel. She has had nausea and vomiting. No diarrhea, black stools, bloody stools, abdominal pain or constipation. No flank pain, history of possible bad food exposure, known contact with a sick individual or change in routine. Has not recently been camping or on antibiotics. The illness is described as moderate. Similar symptoms previously: (a few times). ( Pt admitted for similar symptoms in the past - rule out appy at the time). Recent medical care: Not recently seen/assessed. REVIEW OF SYSTEMS No fever, sore throat, chest pain, difficulty breathing or jaundice. No fainting episodes. Currently . All systems otherwise negative, except as recorded above. PAST HISTORY See nurses notes. PCP: Bita Quezada OB: Dr Ly. Anxiety. Surgeries: No history of previous surgery. Additional Surgeries: no known surgeries. Medications: Zofran Oral 8 mg, daily as needed. BusPIRone HCl Oral 5 mg, 2x a day. Vitamins Oral. Allergies: No Known Drug Allergy. SOCIAL HISTORY Never smoker. History of occasional drug use: marijuana. No alcohol use. No recent travel. Is a local resident. ADDITIONAL NOTES The nursing notes have been reviewed. PHYSICAL EXAM Vital Signs: 12/31/2016 07:52 BP: 107/89. HR: 100. RR: 20. O2 saturation: 99%. Temp: 98.5 F. Pain level now: 0/10. Blood pressure normal. Oxygen saturation normal. Appearance: Alert. Oriented X3. Patient in mild distress. (non-toxic. pleasant. cooperative. accompanied by significant other). Eyes: Pupils equal, round and reactive to light. Eyes normal inspection. ENT: Ears normal. Nose normal. Pharynx normal. Neck: Normal inspection. Neck supple. No meningeal signs. CVS: Normal heart rate and rhythm. Heart sounds normal. Pulses normal. Respiratory: No respiratory distress. No rales, rhonchi or wheezes. Abdomen: (nnegative Greenfield's. No tenderness at McBurney's. No rebound or guarding. Fundus is palpated just above the umbilicus.). Skin: Skin warm and dry. Normal skin color. No rash. Normal skin turgor. Extremities: Extremities exhibit normal ROM. No lower extremity edema. Neuro: No motor deficit. No sensory deficit. (normal gait). LABS, X-RAYS, AND EKG Pelvic Sonogram: A viable intrauterine (HR 153) is present. Cardiac activity noted. Single focus of cardiac activity present. No ectopic . The study was discussed with the radiologist (via tech). The study was interpreted by the radiologist. Laboratory Tests: UA-Culture if indicated: (TRISTAN: 12/31/2016 07:50) ( [facility] 12/31/2016 08:25) Final results Test Result Flag Units (Reference) URINE COLOR YELLOW URINE APPEARANCE SL CLOUDY URINE GLUCOSE NEGATIVE (NEGATIVE) URINE BILIRUBIN NEGATIVE (NEGATIVE) URINE KETONE TRACE (NEGATIVE) URINE SPECIFIC GRAVITY <= 1.005 L (1.010-1.030) URINE PH 7.0 (5.0-8.0) URINE PROTEIN NEGATIVE (NEGATIVE) URINE UROBILINOGEN 0.2 EU/dL (0.2-1.0) URINE NITRITE NEGATIVE (NEGATIVE) URINE BLOOD NEGATIVE (NEGATIVE) URINE LEUK ESTERASE NEGATIVE (NEGATIVE) URINE RBC RARE rbc/hpf (0-1) URINE WBC RARE wbc/hpf (0-1) URINE EPITHELIAL CELLS NONE SEEN EPI/hpf (0-5) URINE BACTERIA MODERATE (2+ TO 3+) (NONE SEEN) URINE COMMENT CULTURE INDICATED RARE MUCOUSURINE CULTURES ARE SET-UP BASED ON THE FOLLOWING CRITERIA:POSITIVE NITRITEPOSITIVE LEUKOCYTE ESTERASEGREATER THAN 10 WHITE BLOOD CELLSMODERATE (2+) OR GREATER BACTERIA CBC w Diff: (TRISTAN: 12/31/2016 07:50) ( [facility] 12/31/2016 08:13) Final results Test Result Flag Units (Reference) WHITE BLOOD COUNT 13.6 H K/uL (4.5-11.5) RED BLOOD COUNT 3.87 L M/uL (4.00-5.20) HEMOGLOBIN 11.6 L gm/dL (12.0-16.0) HEMATOCRIT 34.9 L % (36.0-46.0) MEAN CELL VOLUME 90 fL (80-100) MEAN CORPUSCULAR HGB 30 pg (26-34) MEAN CORPUSCULAR HGB CONC 33 g/dL (31-37) RED CELL DISTRIBUTION WIDTH 13.3 % (11.6-14.8) PLATELET COUNT 192 K/uL (150-400) NEUTROPHIL % 76.4 H % (50-75) LYMPH % 18.8 L % (25-40) MONO % 4.3 % (3-14) EOSINOPHIL % 0.3 % (0-4) BASOPHIL % 0.2 % (0-2) CMP: (TRISTAN: 12/31/2016 07:50) ( MsgRcvd 12/31/2016 08:39) Final results Test Result Flag Units (Reference) GLUCOSE 120 H mg/dL (70-110) BUN 6 L mg/dL (7-18) CREATININE 0.7 mg/dL (0.6-1.3) Estimated GFR >60 mL/min Estimated GFR- >60 mL/min Note: Persistent reduction over 3 months in eGFR<60 mL/min/1.73 m2 defines CKD. Patients with eGFR values>=60 mL/min/1.73 m2 may also have CKD if evidence ofpersistent proteinuria. Additional information may be foundat www.kidney.org. SODIUM 140 mmol/L (136-145) POTASSIUM 3.6 mmol/L (3.5-5.1) CHLORIDE 104 mmol/L (98-107) CARBON DIOXIDE 24 mmol/L (21-32) CALCIUM 9.2 mg/dL (8.5-10.1) TOTAL PROTEIN 7.3 g/dL (6.4-8.2) ALBUMIN 3.4 g/dL (3.3-5.0) BILIRUBIN, TOTAL 0.3 mg/dL (0.0-1.0) ALKALINE PHOSPHATASE 62 U/L (46-116) AST (SGOT) 12 L U/L (15-37) ALT (SGPT) 16 U/L (12-78) LIPASE 114 U/L (73-393) BETA HCG, QUANTITATIVE 84642 mIU/mL REFERENCE RANGE:Adult Males: <2 mIU/mLNon- Females: <6 mIU/mL Females:Approximate Approximate hCGGestational Age Range (mIU/mL) 0-1 week 0-501-2 weeks 40-3002-3 weeks 100-54461-6 weeks 500-93806-5 months 5,000-200,0002-3 months 10,000-100,0002nd trimester 3,000-50,0003rd trimester 1,000-50,000 . Pulse Oximetry: 12/31/2016 07:52 O2 saturation: 99%. (FIO2 - room air). Interpretation: normal. PROGRESS AND PROCEDURES Course of Care: the patient is a 21-year-old female past medical history significant for anxiety presented for evaluation of nausea and vomiting. Patient is approximately 6 weeks . Had a discussion with the patient in regards to Zofran and allegations of potential defects. After having a discussion with the patient in regards to the literature find defects and Zofran, patient is agreeable to having Zofran. Ativan also provided Provided for nausea and anxiety. Workup is pending at this time. Patient will be signed out to the oncoming physician at the change of shift. Normal US. Concern for cyclic vomiting / anxiety. No lab signs of dehydration. Mild serum leukocytosis c/w with demargination from vomiting. 12/31/2016 09:31 BP: 119/64. HR: 71. RR: 18. O2 saturation: 100%. Temp: 98 F. Pain level now: 0/10. Patient/family counseled. Old ED records reviewed. Disposition: Discharged. CLINICAL IMPRESSION Intractable vomiting with nausea. INSTRUCTIONS Drink plenty of fluids. No alcohol. Warnings: Further evaluation is necessary. SEDATIVE MEDICATION: You were given sedative medication during your visit. Do not drive or operate dangerous machinery. CONTROLLED SUBSTANCE WARNINGS. GENERAL WARNINGS: Return or contact your physician immediately if your condition worsens or changes unexpectedly, if not improving as expected, or if other problems arise. Your Current Medications: CONTINUE TAKING THE FOLLOWING MEDICATIONS: BusPIRone HCl Oral : 5 mg 2x a day. Vitamins Oral. Zofran Oral : 8 mg daily, prn. Prescription Medications: Zofran (orally disintegrating tablets) 8 mg: take 1 orally every 6 hours as needed for nausea and vomiting. Dispense five (5). No refill. Substitution is permissible. Reglan 10 mg tablets: take 1 orally four times daily (before meals and at bedtime). Dispense sixty (60). No refills. Substitution is permissible. OTC Medications: Take acetaminophen (Tylenol, Datril, etc.) according to label instructions. Available over the counter. Follow-up with: Te Ly MD, Obstetrics/Gynecology, , [facility], [address] [place] [address] Follow up in two days. (Electronically signed by Stevan Willams DO 12/31/2016 10:28)
--- NOTE | 2016-12-31 09:21 | ED NURSING NOTES ---
Clinical Report - Nurses [facility] [place] [address] [place] [address] 12/31/2016 7:23 Patient: CLIFFORD CHI TRIAGE Triage time 07:33. Acuity: LEVEL 3. Chief Complaint: (vomiting, panic and anxiety over vomiting). Alert. --07:52 Eboni Walters R.N. 07:52 12/31/16. BP: 107/89. HR: 100. RR: 20. O2 saturation: 99%. Temp: 98.5 F. Pain level now: 0. --07:54 Eboni Walters R.N. Weight: 54.4 kg stated. Height/Length: 64 inches Per Patient. BMI: 20.6. --07:50 Eboni Walters R.N. Medications Vitamins Oral. --07:38 Eboni Walters R.N. BusPIRone HCl Oral 5 mg, 2x a day. --07:40 Eboni Walters R.N. Zofran Oral 8 mg, daily as needed. --07:40 Eboni Walters R.N. Allergies No Known Drug Allergy. --07:40 Eboni Walters R.N. History Arrived by private vehicle. Historian: patient. Accompanied by (significant other). Primary physician (CANDIDO LINN, OB AT [facility]). ( Pt sobbing during triage). This started last night. Treatment PERFORMANCE MANAGEMENT CONSULTANT: (Zofran 8 mg po not effective). PAST MEDICAL HX: Currently : 6 months gestation. In 2nd trimester. She has had care. OB history: G 1; P 0; Ab 0. SOCIAL HX: Never smoker. History of drug use: marijuana. No alcohol use. No infectious disease exposure. SELF HARM ASSESSMENT: A self harm assessment was performed. The patient answered "no" to the question "Do you have thoughts of harming or killing yourself?". FALL RISK ASSESSMENT: Fall risk assessment completed. No fall risk identified. NUTRITIONAL RISK ASSESSMENT: The nutritional risk assessment revealed no deficiencies. FUNCTIONAL ASSESSMENT: Functional assessment: no impairments noted. --07:52 Eboni Walters R.N. PROBLEMS: Hypokalemia. Vomiting. Anxiety Reaction. --07:51 Eboni Walters R.N. ADDITIONAL SURGERIES: no known surgeries. Interventions ID band on patient. To room. --07:52 Eboni Walters R.N. PHYSICAL ASSESSMENT 07:54 12/31/16. Patient gowned. GENERAL / NEURO / PSYCH: Alert. Oriented X 4. Appears anxious and in distress. --07:54 Eboni Walters R.N. NURSING PROGRESS NOTES 07:55 ERMD saw pt already. Reassurance given. Patient identifiers checked. Call light placed in reach. Bed placed in lowest position. Patient ready for evaluation- chart flagged. --08:00 Eboni Walters R.N. 07:57 12/31/2016 Site #1 started via IV in the right hand with an 20g angiocath, with aseptic technique and good blood return; one attempt. Blood drawn: rainbow set. Labeled in the presence of the patient and sent to the lab. --08:12 Eboni Walters R.N. 07:57 12/31/2016 Started bag #1 1000 mL IV Fluids IV NS (Saline); at 999 mL/hr via site #1 via IV pump. Confirmed 5 rights. --08:12 Eboni Walters R.N. 08:02 12/31/2016 Zofran (Ondansetron HCl) IVP 4 mg given over 2 minute(s) via site #1. Allergies verified and confirmed 5 rights. --08:12 Eboni Walters R.N. 08:08 12/31/2016 Ativan (LORazepam) IVP 1 mg given over 2 minute(s) via site #1. Confirmed 5 rights and sedative warning given to the patient and patient's inside sales agent. --08:13 Eboni Walters R.N. 08:02. Patient ID band checked for patient name and birthdate: patient confirmed. Clean catch urine collected with return of yellow-colored clear urine; sample sent to lab. Specimen labeled in the presence of the patient. --08:14 Eboni Walters R.N. 08:14 12/31/16. ( FHT's are 155). --08:14 Eboni Walters R.N. 08:16 12/31/16. ( Pt had been instructed to stay npo, upon entering room, pt was at the sink drinking water.). --08:16 Eboni Walters R.N. 08:41 12/31/16. HR: 93. RR: 18. O2 saturation: 99%. --08:42 Eboni Walters R.N. ( At patient's bedside. Patient had been incontinent of urine on the bed pt stated due to the insistent nausea. Tech changed the bed linen and wiped down bed and pt shoes. Pad and incontinence underwear was given to patient and non skid socks.). --08:58 Samantha Copeland ( Ultrasound has been completed.). --09:24 Eboni Walters R.N. 09:20 12/31/2016 IV Fluids IV NS Discontinued: bag #1 completed upon discharge. Total amount infused: 1000 mL. --09:44 Eboni Walters R.N. 09:24 12/31/2016 Zofran (Ondansetron HCl) IVP 4 mg given over 2 minute(s) via site #1. Confirmed 5 rights. --09:41 Eboni Walters R.N. 09:28 12/31/2016 Reglan (Metoclopramide HCl) IVP 10 mg given over 2 minute(s) via site #1. Confirmed 5 rights. --09:40 Eboni Walters R.N. 09:32 12/31/2016 Site #1 removed upon discharge. Catheter intact. Bandage applied. --09:41 Eboni Walters R.N. DISPOSITION / DISCHARGE Departure time: 933. Condition at departure: improved. Reviewed medication(s) information. Prescription(s) given to the inside sales agent. Reviewed referral to an weighbridge operator and family practice for followup. Verbalized understanding. Written instructions provided. The patient was discharged home and accompanied by inside sales agent. She left the Emergency Department ambulatory and via private vehicle. Share Dairy Farmer driving. --09:43 Eboni Walters R.N. 09:31 12/31/16. BP: 119/64. HR: 71. RR: 18. O2 saturation: 100%. Temp: 98 F. Pain level now: 010. --09:43 Eboni Walters R.N. Locked/Released at 12/31/2016 9:44 by Eboni Walters R.N.
--- NOTE | 2016-12-31 09:21 | ED CLINICAL REPORT ---
Clinical Report - Physicians/Mid Levels [facility] [address] [place] [address] 12/31/2016 7:23 Patient: CLIFFORD CHI Time Seen: 0744. Arrived- By private vehicle. Historian- patient. HISTORY OF PRESENT ILLNESS Chief Complaint: VOMITING. This started yesterday and is still present and worsening. It was abrupt in onset and has been constant but is not gone now. No recent travel. She has had nausea and vomiting. No diarrhea, black stools, bloody stools, abdominal pain or constipation. No flank pain, history of possible bad food exposure, known contact with a sick individual or change in routine. Has not recently been camping or on antibiotics. The illness is described as moderate. Similar symptoms previously: (a few times). ( Pt admitted for similar symptoms in the past - rule out appy at the time). Recent medical care: Not recently seen/assessed. REVIEW OF SYSTEMS No fever, sore throat, chest pain, difficulty breathing or jaundice. No fainting episodes. Currently . All systems otherwise negative, except as recorded above. PAST HISTORY See nurses notes. PCP: Bita Quezada OB: Dr Ly. Anxiety. Surgeries: No history of previous surgery. Additional Surgeries: no known surgeries. Medications: Zofran Oral 8 mg, daily as needed. BusPIRone HCl Oral 5 mg, 2x a day. Vitamins Oral. Allergies: No Known Drug Allergy. SOCIAL HISTORY Never smoker. History of occasional drug use: marijuana. No alcohol use. No recent travel. Is a local resident. ADDITIONAL NOTES The nursing notes have been reviewed. PHYSICAL EXAM Vital Signs: 12/31/2016 07:52 BP: 107/89. HR: 100. RR: 20. O2 saturation: 99%. Temp: 98.5 F. Pain level now: 0/10. Blood pressure normal. Oxygen saturation normal. Appearance: Alert. Oriented X3. Patient in mild distress. (non-toxic. pleasant. cooperative. accompanied by significant other). Eyes: Pupils equal, round and reactive to light. Eyes normal inspection. ENT: Ears normal. Nose normal. Pharynx normal. Neck: Normal inspection. Neck supple. No meningeal signs. CVS: Normal heart rate and rhythm. Heart sounds normal. Pulses normal. Respiratory: No respiratory distress. No rales, rhonchi or wheezes. Abdomen: (nnegative Greenfield's. No tenderness at McBurney's. No rebound or guarding. Fundus is palpated just above the umbilicus.). Skin: Skin warm and dry. Normal skin color. No rash. Normal skin turgor. Extremities: Extremities exhibit normal ROM. No lower extremity edema. Neuro: No motor deficit. No sensory deficit. (normal gait). LABS, X-RAYS, AND EKG Pelvic Sonogram: A viable intrauterine (HR 153) is present. Cardiac activity noted. Single focus of cardiac activity present. No ectopic . The study was discussed with the radiologist (via tech). The study was interpreted by the radiologist. Laboratory Tests: UA-Culture if indicated: (TRISTAN: 12/31/2016 07:50) ( [facility] 12/31/2016 08:25) Final results Test Result Flag Units (Reference) URINE COLOR YELLOW URINE APPEARANCE SL CLOUDY URINE GLUCOSE NEGATIVE (NEGATIVE) URINE BILIRUBIN NEGATIVE (NEGATIVE) URINE KETONE TRACE (NEGATIVE) URINE SPECIFIC GRAVITY <= 1.005 L (1.010-1.030) URINE PH 7.0 (5.0-8.0) URINE PROTEIN NEGATIVE (NEGATIVE) URINE UROBILINOGEN 0.2 EU/dL (0.2-1.0) URINE NITRITE NEGATIVE (NEGATIVE) URINE BLOOD NEGATIVE (NEGATIVE) URINE LEUK ESTERASE NEGATIVE (NEGATIVE) URINE RBC RARE rbc/hpf (0-1) URINE WBC RARE wbc/hpf (0-1) URINE EPITHELIAL CELLS NONE SEEN EPI/hpf (0-5) URINE BACTERIA MODERATE (2+ TO 3+) (NONE SEEN) URINE COMMENT CULTURE INDICATED RARE MUCOUSURINE CULTURES ARE SET-UP BASED ON THE FOLLOWING CRITERIA:POSITIVE NITRITEPOSITIVE LEUKOCYTE ESTERASEGREATER THAN 10 WHITE BLOOD CELLSMODERATE (2+) OR GREATER BACTERIA CBC w Diff: (TRISTAN: 12/31/2016 07:50) ( [facility] 12/31/2016 08:13) Final results Test Result Flag Units (Reference) WHITE BLOOD COUNT 13.6 H K/uL (4.5-11.5) RED BLOOD COUNT 3.87 L M/uL (4.00-5.20) HEMOGLOBIN 11.6 L gm/dL (12.0-16.0) HEMATOCRIT 34.9 L % (36.0-46.0) MEAN CELL VOLUME 90 fL (80-100) MEAN CORPUSCULAR HGB 30 pg (26-34) MEAN CORPUSCULAR HGB CONC 33 g/dL (31-37) RED CELL DISTRIBUTION WIDTH 13.3 % (11.6-14.8) PLATELET COUNT 192 K/uL (150-400) NEUTROPHIL % 76.4 H % (50-75) LYMPH % 18.8 L % (25-40) MONO % 4.3 % (3-14) EOSINOPHIL % 0.3 % (0-4) BASOPHIL % 0.2 % (0-2) CMP: (TRISTAN: 12/31/2016 07:50) ( MsgRcvd 12/31/2016 08:39) Final results Test Result Flag Units (Reference) GLUCOSE 120 H mg/dL (70-110) BUN 6 L mg/dL (7-18) CREATININE 0.7 mg/dL (0.6-1.3) Estimated GFR >60 mL/min Estimated GFR- >60 mL/min Note: Persistent reduction over 3 months in eGFR<60 mL/min/1.73 m2 defines CKD. Patients with eGFR values>=60 mL/min/1.73 m2 may also have CKD if evidence ofpersistent proteinuria. Additional information may be foundat www.kidney.org. SODIUM 140 mmol/L (136-145) POTASSIUM 3.6 mmol/L (3.5-5.1) CHLORIDE 104 mmol/L (98-107) CARBON DIOXIDE 24 mmol/L (21-32) CALCIUM 9.2 mg/dL (8.5-10.1) TOTAL PROTEIN 7.3 g/dL (6.4-8.2) ALBUMIN 3.4 g/dL (3.3-5.0) BILIRUBIN, TOTAL 0.3 mg/dL (0.0-1.0) ALKALINE PHOSPHATASE 62 U/L (46-116) AST (SGOT) 12 L U/L (15-37) ALT (SGPT) 16 U/L (12-78) LIPASE 114 U/L (73-393) BETA HCG, QUANTITATIVE 63518 mIU/mL REFERENCE RANGE:Adult Males: <2 mIU/mLNon- Females: <6 mIU/mL Females:Approximate Approximate hCGGestational Age Range (mIU/mL) 0-1 week 0-501-2 weeks 40-3002-3 weeks 100-54663-5 weeks 500-61433-9 months 5,000-200,0002-3 months 10,000-100,0002nd trimester 3,000-50,0003rd trimester 1,000-50,000 . Pulse Oximetry: 12/31/2016 07:52 O2 saturation: 99%. (FIO2 - room air). Interpretation: normal. PROGRESS AND PROCEDURES Course of Care: the patient is a 21-year-old female past medical history significant for anxiety presented for evaluation of nausea and vomiting. Patient is approximately 6 weeks . Had a discussion with the patient in regards to Zofran and allegations of potential defects. After having a discussion with the patient in regards to the literature find defects and Zofran, patient is agreeable to having Zofran. Ativan also provided Provided for nausea and anxiety. Workup is pending at this time. Patient will be signed out to the oncoming physician at the change of shift. Normal US. Concern for cyclic vomiting / anxiety. No lab signs of dehydration. Mild serum leukocytosis c/w with demargination from vomiting. 12/31/2016 09:31 BP: 119/64. HR: 71. RR: 18. O2 saturation: 100%. Temp: 98 F. Pain level now: 0/10. Patient/family counseled. Old ED records reviewed. Disposition: Discharged. CLINICAL IMPRESSION Intractable vomiting with nausea. INSTRUCTIONS Drink plenty of fluids. No alcohol. Warnings: Further evaluation is necessary. SEDATIVE MEDICATION: You were given sedative medication during your visit. Do not drive or operate dangerous machinery. CONTROLLED SUBSTANCE WARNINGS. GENERAL WARNINGS: Return or contact your physician immediately if your condition worsens or changes unexpectedly, if not improving as expected, or if other problems arise. Your Current Medications: CONTINUE TAKING THE FOLLOWING MEDICATIONS: BusPIRone HCl Oral : 5 mg 2x a day. Vitamins Oral. Zofran Oral : 8 mg daily, prn. Prescription Medications: Zofran (orally disintegrating tablets) 8 mg: take 1 orally every 6 hours as needed for nausea and vomiting. Dispense five (5). No refill. Substitution is permissible. Reglan 10 mg tablets: take 1 orally four times daily (before meals and at bedtime). Dispense sixty (60). No refills. Substitution is permissible. OTC Medications: Take acetaminophen (Tylenol, Datril, etc.) according to label instructions. Available over the counter. Follow-up with: Te Ly MD, Obstetrics/Gynecology, , [facility], [address] [place] [address] Follow up in two days. (Electronically signed by Stevan Willams DO 12/31/2016 10:28)
--- NOTE | 2016-12-31 09:21 | ED ORDER SUMMARY ---
..... Patient: CLIFFORD CHI OrderSheet [facility] VisitID: [id number] [place] [address] 21y, F Registration Date/Time: 12/31/2016 ORDER SHEET Weight: 54.4 kg (stated) Allergies: No Known Drug Allergy GENERAL ORDERS: US OB Limited (> 6 mo ago) Urgent (07:54 12/31/2016 Terry Banks) (Ack 8:00 TBergley) (9:24 LSullivan R.N.) CBC w Diff Urgent (07:12/31/2016 Terry Banks) (Ack 8:00 TBergley) (8:13 LSullivan R.N.) CMP Urgent (:12/31/2016 Terry Banks) (Ack 8:00 TBergley) (8:13 LSullivan R.N.) UA-Culture if indicated Urgent (:12/31/2016 Terry Banks) (Ack 8:00 TBergley) (8:13 LSullivan R.N.) Serum Quantitative Urgent (:12/31/2016 Terry Banks) (Ack 8:00 TBergley) (8:13 LSullivan R.N.) Lipase Urgent (:12/31/2016 Terry Banks) (Ack 8:00 TBergley) (8:13 LSullivan R.N.) MEDICATION ORDERS: IV FLUIDS: Zofran IV 4 mg (NOW) (07:57 12/31/2016 Terry Banks) (8:12 LSullivan R.N.) Ativan IV 1 mg (HIGH ALERT MEDICATION, NOW) (07:58 12/31/2016 Terry Banks) (8:13 LSullivan R.N.) IV NS : initial bolus 1000 mL (1000 mL/hr), then none - for X1 (NOW) (07:58 12/31/2016 Terry Banks) (8:12 LSullivan R.N.) Reglan IV 10 mg (NOW) (09:24 12/31/2016 Abby JCAOBO) (9:40 LSullivan R.N.) Zofran IV 4 mg (NOW) (09:24 12/31/2016 Abby JACOBO) (9:41 Edu Myles) ORDER SHEET NOTES: [Electronically signed by Eboni Walters R.N. (:44 12/31/2016)] [Electronically signed by Stevan Willams DO (10:28 12/31/2016)] [Electronically locked/signed by Eboni Walters R.N. (:44 12/31/2016)]
--- NOTE | 2016-12-31 09:21 | ED NURSING NOTES ---
Clinical Report - Nurses [facility] [place] [address] 12/31/2016 7:23 Patient: CLIFFORD CHI TRIAGE Triage time 07:33. Acuity: LEVEL 3. Chief Complaint: (vomiting, panic and anxiety over vomiting). Alert. --07:52 Eboni Walters R.N. 07:52 12/31/16. BP: 107/89. HR: 100. RR: 20. O2 saturation: 99%. Temp: 98.5 F. Pain level now: 0. --07:54 Eboni Walters R.N. Weight: 54.4 kg stated. Height/Length: 64 inches Per Patient. BMI: 20.6. --07:50 Eboni Walters R.N. Medications Vitamins Oral. --07:38 Eboni Walters R.N. BusPIRone HCl Oral 5 mg, 2x a day. --07:40 Eboni Walters R.N. Zofran Oral 8 mg, daily as needed. --07:40 Eboni Walters R.N. Allergies No Known Drug Allergy. --07:40 Eboni Walters R.N. History Arrived by private vehicle. Historian: patient. Accompanied by (significant other). Primary physician (CANDIDO LINN, OB AT [facility]). ( Pt sobbing during triage). This started last night. Treatment SENIOR WEB ARCHITECT: (Zofran 8 mg po not effective). PAST MEDICAL HX: Currently : 6 months gestation. In 2nd trimester. She has had care. OB history: G 1; P 0; Ab 0. SOCIAL HX: Never smoker. History of drug use: marijuana. No alcohol use. No infectious disease exposure. SELF HARM ASSESSMENT: A self harm assessment was performed. The patient answered "no" to the question "Do you have thoughts of harming or killing yourself?". FALL RISK ASSESSMENT: Fall risk assessment completed. No fall risk identified. NUTRITIONAL RISK ASSESSMENT: The nutritional risk assessment revealed no deficiencies. FUNCTIONAL ASSESSMENT: Functional assessment: no impairments noted. --07:52 Eboni Walters R.N. PROBLEMS: Hypokalemia. Vomiting. Anxiety Reaction. --07:51 Eboni Walters R.N. ADDITIONAL SURGERIES: no known surgeries. Interventions ID band on patient. To room. --07:52 Eboni Walters R.N. PHYSICAL ASSESSMENT 07:54 12/31/16. Patient gowned. GENERAL / NEURO / PSYCH: Alert. Oriented X 4. Appears anxious and in distress. --07:54 Eboni Walters R.N. NURSING PROGRESS NOTES 07:55 ERMD saw pt already. Reassurance given. Patient identifiers checked. Call light placed in reach. Bed placed in lowest position. Patient ready for evaluation- chart flagged. --08:00 Eboni Walters R.N. 07:57 12/31/2016 Site #1 started via IV in the right hand with an 20g angiocath, with aseptic technique and good blood return; one attempt. Blood drawn: rainbow set. Labeled in the presence of the patient and sent to the lab. --08:12 Eboni Walters R.N. 07:57 12/31/2016 Started bag #1 1000 mL IV Fluids IV NS (Saline); at 999 mL/hr via site #1 via IV pump. Confirmed 5 rights. --08:12 Eboni Walters R.N. 08:02 12/31/2016 Zofran (Ondansetron HCl) IVP 4 mg given over 2 minute(s) via site #1. Allergies verified and confirmed 5 rights. --08:12 Eboni Walters R.N. 08:08 12/31/2016 Ativan (LORazepam) IVP 1 mg given over 2 minute(s) via site #1. Confirmed 5 rights and sedative warning given to the patient and patient's rn diabetes. --08:13 Eboni Walters R.N. 08:02. Patient ID band checked for patient name and birthdate: patient confirmed. Clean catch urine collected with return of yellow-colored clear urine; sample sent to lab. Specimen labeled in the presence of the patient. --08:14 Eboni Walters R.N. 08:14 12/31/16. ( FHT's are 155). --08:14 Eboni Walters R.N. 08:16 12/31/16. ( Pt had been instructed to stay npo, upon entering room, pt was at the sink drinking water.). --08:16 Eboni Walters R.N. 08:41 12/31/16. HR: 93. RR: 18. O2 saturation: 99%. --08:42 Eboni Walters R.N. ( At patient's bedside. Patient had been incontinent of urine on the bed pt stated due to the insistent nausea. Tech changed the bed linen and wiped down bed and pt shoes. Pad and incontinence underwear was given to patient and non skid socks.). --08:58 Samantha Copeland ( Ultrasound has been completed.). --09:24 Eboni Walters R.N. 09:20 12/31/2016 IV Fluids IV NS Discontinued: bag #1 completed upon discharge. Total amount infused: 1000 mL. --09:44 Eboni Walters R.N. 09:24 12/31/2016 Zofran (Ondansetron HCl) IVP 4 mg given over 2 minute(s) via site #1. Confirmed 5 rights. --09:41 Eboni Walters R.N. 09:28 12/31/2016 Reglan (Metoclopramide HCl) IVP 10 mg given over 2 minute(s) via site #1. Confirmed 5 rights. --09:40 Eboni Walters R.N. 09:32 12/31/2016 Site #1 removed upon discharge. Catheter intact. Bandage applied. --09:41 Eboni Walters R.N. DISPOSITION / DISCHARGE Departure time: 933. Condition at departure: improved. Reviewed medication(s) information. Prescription(s) given to the rn diabetes. Reviewed referral to an java support engineer and family practice for followup. Verbalized understanding. Written instructions provided. The patient was discharged home and accompanied by rn diabetes. She left the Emergency Department ambulatory and via private vehicle. Accounting Intern driving. --09:43 Eboni Walters R.N. 09:31 12/31/16. BP: 119/64. HR: 71. RR: 18. O2 saturation: 100%. Temp: 98 F. Pain level now: 010. --09:43 Eboni Walters R.N. Locked/Released at 12/31/2016 9:44 by Eboni Walters R.N.
--- NOTE | 2016-12-31 09:39 | DIAGNOSTIC IMAGING REPORT ---
PROCEDURE: US OB LIMITED INDICATION: Nausea and vomiting. Check viability. TECHNIQUE: Powell scale, color, and spectral Doppler images of the second trimester gravid uterus were obtained. COMPARISON: Comparison made to obstetric ultrasound on 12/12/2016. FINDINGS: A viable intrauterine in cephalic position with cardiac activity (152). Placenta is anterior and there is no evidence of previa or abruption. Normal fluid and cervix length (3.1 cm). Maternal kidneys are normal. IMPRESSION: 1. Viable intrauterine in cephalic position. 2. No evidence of previa or abruption.
--- NOTE | 2016-12-31 10:29 | ED MAR SUMMARY ---
..... Medication Administration [facility] [address] [place] [address] Patient: CLIFFORD CHI Visit ID: [id number] 21y, F Weight: 54.4 kg Height/Length: 64 in BMI: 20.6 ALLERGIES: No Known Drug Allergy Start 07:57 12/31/2016 Eboni Walters R.N., Stop 09:20 12/31/2016 Eboni Walters R.N. Medication Administered: IV NS (SALINE), Dose: IV Fluids, Rate: 999 mL/hr, Dispensed: 1000 mL bag, Site: #1 right hand. Medication Ordered: IV NS : initial bolus 1000 mL (1000 mL/hr), then none - for X1 (NOW). Given 08:02 12/31/2016 Eboni Walters R.N. Medication Administered: ZOFRAN [IVP] (ONDANSETRON HCL), Dose: 4 mg IVP over 2 minute(s), Site: #1 right hand. Medication Ordered: Zofran IV 4 mg (NOW). Given 08:08 12/31/2016 Eboni Walters R.N. Medication Administered: ATIVAN [IVP] (LORAZEPAM), Dose: 1 mg IVP over 2 minute(s), Site: #1 right hand. Medication Ordered: Ativan IV 1 mg (HIGH ALERT MEDICATION, NOW). Given 09:24 12/31/2016 Eboni Walters R.N. Medication Administered: ZOFRAN [IVP] (ONDANSETRON HCL), Dose: 4 mg IVP over 2 minute(s), Site: #1 right hand. Medication Ordered: Zofran IV 4 mg (NOW). Given 09:28 12/31/2016 Eboni Walters R.N. Medication Administered: REGLAN [IVP] (METOCLOPRAMIDE HCL), Dose: 10 mg IVP over 2 minute(s), Site: #1 right hand. Medication Ordered: Reglan IV 10 mg (NOW).
--- NOTE | 2016-12-31 10:29 | ED DISCHARGE INSTRUCTIONS ---
Patient: CLIFFORD CHI General Instructions [facility] VisitID: [id number] [place] [address] 21y, F Registration Date/Time: 12/31/2016 Intractable vomiting with nausea. INSTRUCTIONS Drink plenty of fluids. No alcohol. Warnings: Further evaluation is necessary. SEDATIVE MEDICATION: You were given sedative medication during your visit. Do not drive or operate dangerous machinery. CONTROLLED SUBSTANCE WARNINGS. GENERAL WARNINGS: Return or contact your physician immediately if your condition worsens or changes unexpectedly, if not improving as expected, or if other problems arise. Your Current Medications: CONTINUE TAKING THE FOLLOWING MEDICATIONS: BusPIRone HCl Oral : 5 mg 2x a day. Vitamins Oral. Zofran Oral : 8 mg daily, prn. Prescription Medications: Zofran (orally disintegrating tablets) 8 mg: take 1 orally every 6 hours as needed for nausea and vomiting. Dispense five (5). No refill. Substitution is permissible. Reglan 10 mg tablets: take 1 orally four times daily (before meals and at bedtime). Dispense sixty (60). No refills. Substitution is permissible. OTC Medications: Take acetaminophen (Tylenol, Datril, etc.) according to label instructions. Available over the counter. Follow-up with: Te Ly MD, Obstetrics/Gynecology, , [facility], [address] [place] [address] Follow up in two days. ADDITIONAL INFORMATION Vomiting [6Yr-Adult] Vomiting is a common symptom that may be due to different causes. These include gastroenteritis ("stomach flu"), food poisoning and gastritis. There are other more serious causes of vomiting which may be hard to diagnose early in the illness. Therefore, it is important to watch for the warning signs listed below. The main danger from repeated vomiting is dehydration. This is due to excess loss of water and minerals from the body. When this occurs, body fluids must be replaced. Home Care: If symptoms are severe, rest at home for the next 24 hours. You may use acetaminophen (Tylenol) or ibuprofen (Motrin, Advil) to control fever, unless another medicine was prescribed. [NOTE : If you have chronic liver or kidney disease or ever had a stomach ulcer or GI bleeding, talk with your doctor before using these medicines.] (Aspirin should never be used in anyone under 18 years of age who is ill with a fever. It may cause severe liver damage.) Avoid tobacco and alcohol use, which may worsen your symptoms. If medicines for vomiting were prescribed, take as directed. Once vomiting stops, then follow these guidelines: During The First 12-24 Hours follow the diet below: FRUIT JUICES: Apple, grape juice, clear fruit drinks, and electrolyte replacement drinks. BEVERAGES: Soft drinks without caffeine; mineral water (plain or flavored), decaffeinated tea and coffee. SOUPS: Clear broth, consomm and bouillon DESSERTS: Plain gelatin, popsicles and fruit juice bars. As you feel better, you may add 6-8 ounces of yogurt per day. During The Next 24 Hours you may add the following to the above: Hot cereal, plain toast, bread, rolls, crackers Plain noodles, rice, mashed potatoes, chicken noodle or rice soup Unsweetened canned fruit (avoid pineapple), bananas Limit caffeine and chocolate. No spices or seasonings except salt. During The Next 24 Hours Gradually resume a normal diet, as you feel better and your symptoms lessen. Follow Up with your doctor as advised if you are not improving over the next 2-3 days. Get Prompt Medical Attention if any of the following occur: Constant right-sided lower abdominal pain or increasing general abdominal pain Continued vomiting (unable to keep liquids down) for 24 hours Frequent diarrhea (more than 5 times a day); blood (red or black color) or mucus in diarrhea Reduced urine output or extreme thirst Weakness, dizziness or fainting Unusually drowsy or confused Fever of 100.4F (38C) oral or higher, not better with fever medication Yellow color of the eyes or skin Ondansetron Oral disintegrating tablet What is this medicine? ONDANSETRON (on SAMANTHA se destiny) is used to treat nausea and vomiting caused by chemotherapy. It is also used to prevent or treat nausea and vomiting after surgery. How should I use this medicine? These tablets are made to dissolve in the mouth. Do not try to push the tablet through the foil backing. With dry hands, peel away the foil backing and gently remove the tablet. Place the tablet in the mouth and allow it to dissolve, then swallow. While you may take these tablets with water, it is not necessary to do so. Talk to your cigarette carton sealer regarding the use of this medicine in children. Special care may be needed. What side effects may I notice from receiving this medicine? Side effects that you should report to your doctor or health college and career counselor as soon as possible: allergic reactions like skin rash, itching or hives, swelling of the face, lips, or tongue breathing problems dizziness fast or irregular heartbeat feeling faint or lightheaded, falls fever and chills swelling of the hands and feet tightness in the chest Side effects that usually do not require medical attention (report to your doctor or health college and career counselor if they continue or are bothersome): constipation or diarrhea headache What may interact with this medicine? Do not take this medicine with any of the following medications: -apomorphine -cisapride -dofetilide -dronedarone -pimozide -thioridazine -ziprasidone This medicine may also interact with the following medications: -carbamazepine -phenytoin -rifampicin -tramadol -other medicines that prolong the QT interval (cause an abnormal heart rhythm) What if I miss a dose? If you miss a dose, take it as soon as you can. If it is almost time for your next dose, take only that dose. Do not take double or extra doses. Where should I keep my medicine? Keep out of the reach of children. Store between 2 and 30 degrees C (36 and 86 degrees F). Throw away any unused medicine after the expiration date. What should I tell my health care provider before I take this medicine? They need to know if you have any of these conditions: heart disease history of irregular heartbeat liver disease low levels of magnesium or potassium in the blood an unusual or allergic reaction to ondansetron, granisetron, other medicines, foods, dyes, or preservatives or trying to get breast-feeding What should I watch for while using this medicine? Check with your doctor or health college and career counselor as soon as you can if you have any sign of an allergic reaction. Metoclopramide Hydrochloride Oral tablet What is this medicine? METOCLOPRAMIDE (met oh kloe PRA mide) is used to treat the symptoms of gastroesophageal reflux disease (GERD) like heartburn. It is also used to treat people with slow emptying of the stomach and intestinal tract. How should I use this medicine? Take this medicine by mouth with a glass of water. Follow the directions on the prescription label. Take this medicine on an empty stomach, about 30 minutes before eating. Take your doses at regular intervals. Do not take your medicine more often than directed. Do not stop taking except on the advice of your doctor or health college and career counselor. A special MedGuide will be given to you by the pharmacist with each prescription and refill. Be sure to read this information carefully each time. Talk to your cigarette carton sealer regarding the use of this medicine in children. Special care may be needed. What side effects may I notice from receiving this medicine? Side effects that you should report to your doctor or health college and career counselor as soon as possible: allergic reactions like skin rash, itching or hives, swelling of the face, lips, or tongue abnormal production of milk in females breast enlargement in both males and females change in the way you walk difficulty moving, speaking or swallowing drooling, lip smacking, or rapid movements of the tongue excessive sweating fever involuntary or uncontrollable movements of the eyes, head, arms and legs irregular heartbeat or palpitations muscle twitches and spasms unusually weak or tired Side effects that usually do not require medical attention (report to your doctor or health college and career counselor if they continue or are bothersome): change in sex drive or performance depressed mood diarrhea difficulty sleeping headache menstrual changes restless or nervous What may interact with this medicine? acetaminophen cyclosporine digoxin medicines for blood pressure medicines for diabetes, including insulin medicines for hay fever and other allergies medicines for depression, especially an Monoamine Oxidase Inhibitor (MAOI) medicines for Parkinson's disease, like levodopa medicines for sleep or for pain tetracycline What if I miss a dose? If you miss a dose, take it as soon as you can. If it is almost time for your next dose, take only that dose. Do not take double or extra doses. Where should I keep my medicine? Keep out of the reach of children. Store at room temperature between 20 and 25 degrees C (68 and 77 degrees F). Protect from light. Keep container tightly closed. Throw away any unused medicine after the expiration date. What should I tell my health care provider before I take this medicine? They need to know if you have any of these conditions: breast cancer depression diabetes heart failure high blood pressure kidney disease liver disease Parkinson's disease or a movement disorder pheochromocytoma seizures stomach obstruction, bleeding, or perforation an unusual or allergic reaction to metoclopramide, procainamide, sulfites, other medicines, foods, dyes, or preservatives or trying to get breast-feeding What should I watch for while using this medicine? It may take a few weeks for your stomach condition to start to get better. However, do not take this medicine for longer than 12 weeks. The longer you take this medicine, and the more you take it, the greater your chances are of developing serious side effects. If you are an elderly patient, a female patient, or you have diabetes, you may be at an increased risk for side effects from this medicine. Contact your doctor immediately if you start having movements you cannot control such as lip smacking, rapid movements of the tongue, involuntary or uncontrollable movements of the eyes, head, arms and legs, or muscle twitches and spasms. Patients and their families should watch out for worsening depression or thoughts of suicide. Also watch out for any sudden or severe changes in feelings such as feeling anxious, agitated, panicky, irritable, hostile, aggressive, impulsive, severely restless, overly excited and hyperactive, or not being able to sleep. If this happens, especially at the beginning of treatment or after a change in dose, call your doctor. Do not treat yourself for high fever. Ask your doctor or health college and career counselor for advice. You may get drowsy or dizzy. Do not drive, use machinery, or do anything that needs mental alertness until you know how this drug affects you. Do not stand or sit up quickly, especially if you are an older patient. This reduces the risk of dizzy or fainting spells. Alcohol can make you more drowsy and dizzy. Avoid alcoholic drinks. You have been given the following additional information: Vomiting (6Y-Adult) Ondansetron Oral disintegrating tablet Metoclopramide Hydrochloride Oral tablet (Electronically signed by Stevan Willams DO 12/31/2016 10:28)
--- NOTE | 2016-12-31 10:29 | ED MAR SUMMARY ---
..... Medication Administration Record [facility] [address] [place] [address] Patient: CLIFFORD CHI Visit ID: [id number] 21y, F Weight: 54.4 kg Height/Length: 64 in BMI: 20.6 ALLERGIES: No Known Drug Allergy Start 07:57 12/31/2016 Eboni Walters R.N., Stop 09:20 12/31/2016 Eboni Walters R.N. Medication Administered: IV NS (SALINE), Dose: IV Fluids, Rate: 999 mL/hr, Dispensed: 1000 mL bag, Site: #1 right hand. Medication Ordered: IV NS : initial bolus 1000 mL (1000 mL/hr), then none - for X1 (NOW). Given 08:02 12/31/2016 Eboni Walters R.N. Medication Administered: ZOFRAN [IVP] (ONDANSETRON HCL), Dose: 4 mg IVP over 2 minute(s), Site: #1 right hand. Medication Ordered: Zofran IV 4 mg (NOW). Given 08:08 12/31/2016 Eboni Walters R.N. Medication Administered: ATIVAN [IVP] (LORAZEPAM), Dose: 1 mg IVP over 2 minute(s), Site: #1 right hand. Medication Ordered: Ativan IV 1 mg (HIGH ALERT MEDICATION, NOW). Given 09:24 12/31/2016 Eboni Walters R.N. Medication Administered: ZOFRAN [IVP] (ONDANSETRON HCL), Dose: 4 mg IVP over 2 minute(s), Site: #1 right hand. Medication Ordered: Zofran IV 4 mg (NOW). Given 09:28 12/31/2016 Eboni Walters R.N. Medication Administered: REGLAN [IVP] (METOCLOPRAMIDE HCL), Dose: 10 mg IVP over 2 minute(s), Site: #1 right hand. Medication Ordered: Reglan IV 10 mg (NOW).
--- NOTE | 2016-12-31 10:29 | ED DISCHARGE INSTRUCTIONS ---
Patient: CLIFFORD CHI General Instructions [facility] VisitID: [id number] [place] [address] 21y, F Registration Date/Time: 12/31/2016 Intractable vomiting with nausea. INSTRUCTIONS Drink plenty of fluids. No alcohol. Warnings: Further evaluation is necessary. SEDATIVE MEDICATION: You were given sedative medication during your visit. Do not drive or operate dangerous machinery. CONTROLLED SUBSTANCE WARNINGS. GENERAL WARNINGS: Return or contact your physician immediately if your condition worsens or changes unexpectedly, if not improving as expected, or if other problems arise. Your Current Medications: CONTINUE TAKING THE FOLLOWING MEDICATIONS: BusPIRone HCl Oral : 5 mg 2x a day. Vitamins Oral. Zofran Oral : 8 mg daily, prn. Prescription Medications: Zofran (orally disintegrating tablets) 8 mg: take 1 orally every 6 hours as needed for nausea and vomiting. Dispense five (5). No refill. Substitution is permissible. Reglan 10 mg tablets: take 1 orally four times daily (before meals and at bedtime). Dispense sixty (60). No refills. Substitution is permissible. OTC Medications: Take acetaminophen (Tylenol, Datril, etc.) according to label instructions. Available over the counter. Follow-up with: Te Ly MD, Obstetrics/Gynecology, , [facility], [address] [place] [address] Follow up in two days. ADDITIONAL INFORMATION Vomiting [6Yr-Adult] Vomiting is a common symptom that may be due to different causes. These include gastroenteritis ("stomach flu"), food poisoning and gastritis. There are other more serious causes of vomiting which may be hard to diagnose early in the illness. Therefore, it is important to watch for the warning signs listed below. The main danger from repeated vomiting is dehydration. This is due to excess loss of water and minerals from the body. When this occurs, body fluids must be replaced. Home Care: If symptoms are severe, rest at home for the next 24 hours. You may use acetaminophen (Tylenol) or ibuprofen (Motrin, Advil) to control fever, unless another medicine was prescribed. [NOTE : If you have chronic liver or kidney disease or ever had a stomach ulcer or GI bleeding, talk with your doctor before using these medicines.] (Aspirin should never be used in anyone under 18 years of age who is ill with a fever. It may cause severe liver damage.) Avoid tobacco and alcohol use, which may worsen your symptoms. If medicines for vomiting were prescribed, take as directed. Once vomiting stops, then follow these guidelines: During The First 12-24 Hours follow the diet below: FRUIT JUICES: Apple, grape juice, clear fruit drinks, and electrolyte replacement drinks. BEVERAGES: Soft drinks without caffeine; mineral water (plain or flavored), decaffeinated tea and coffee. SOUPS: Clear broth, consomm and bouillon DESSERTS: Plain gelatin, popsicles and fruit juice bars. As you feel better, you may add 6-8 ounces of yogurt per day. During The Next 24 Hours you may add the following to the above: Hot cereal, plain toast, bread, rolls, crackers Plain noodles, rice, mashed potatoes, chicken noodle or rice soup Unsweetened canned fruit (avoid pineapple), bananas Limit caffeine and chocolate. No spices or seasonings except salt. During The Next 24 Hours Gradually resume a normal diet, as you feel better and your symptoms lessen. Follow Up with your doctor as advised if you are not improving over the next 2-3 days. Get Prompt Medical Attention if any of the following occur: Constant right-sided lower abdominal pain or increasing general abdominal pain Continued vomiting (unable to keep liquids down) for 24 hours Frequent diarrhea (more than 5 times a day); blood (red or black color) or mucus in diarrhea Reduced urine output or extreme thirst Weakness, dizziness or fainting Unusually drowsy or confused Fever of 100.4F (38C) oral or higher, not better with fever medication Yellow color of the eyes or skin Ondansetron Oral disintegrating tablet What is this medicine? ONDANSETRON (on SAMANTHA se destiny) is used to treat nausea and vomiting caused by chemotherapy. It is also used to prevent or treat nausea and vomiting after surgery. How should I use this medicine? These tablets are made to dissolve in the mouth. Do not try to push the tablet through the foil backing. With dry hands, peel away the foil backing and gently remove the tablet. Place the tablet in the mouth and allow it to dissolve, then swallow. While you may take these tablets with water, it is not necessary to do so. Talk to your awning spreader regarding the use of this medicine in children. Special care may be needed. What side effects may I notice from receiving this medicine? Side effects that you should report to your doctor or health care team coordinator scheduler as soon as possible: allergic reactions like skin rash, itching or hives, swelling of the face, lips, or tongue breathing problems dizziness fast or irregular heartbeat feeling faint or lightheaded, falls fever and chills swelling of the hands and feet tightness in the chest Side effects that usually do not require medical attention (report to your doctor or health care team coordinator scheduler if they continue or are bothersome): constipation or diarrhea headache What may interact with this medicine? Do not take this medicine with any of the following medications: -apomorphine -cisapride -dofetilide -dronedarone -pimozide -thioridazine -ziprasidone This medicine may also interact with the following medications: -carbamazepine -phenytoin -rifampicin -tramadol -other medicines that prolong the QT interval (cause an abnormal heart rhythm) What if I miss a dose? If you miss a dose, take it as soon as you can. If it is almost time for your next dose, take only that dose. Do not take double or extra doses. Where should I keep my medicine? Keep out of the reach of children. Store between 2 and 30 degrees C (36 and 86 degrees F). Throw away any unused medicine after the expiration date. What should I tell my health care provider before I take this medicine? They need to know if you have any of these conditions: heart disease history of irregular heartbeat liver disease low levels of magnesium or potassium in the blood an unusual or allergic reaction to ondansetron, granisetron, other medicines, foods, dyes, or preservatives or trying to get breast-feeding What should I watch for while using this medicine? Check with your doctor or health care team coordinator scheduler as soon as you can if you have any sign of an allergic reaction. Metoclopramide Hydrochloride Oral tablet What is this medicine? METOCLOPRAMIDE (met oh kloe PRA mide) is used to treat the symptoms of gastroesophageal reflux disease (GERD) like heartburn. It is also used to treat people with slow emptying of the stomach and intestinal tract. How should I use this medicine? Take this medicine by mouth with a glass of water. Follow the directions on the prescription label. Take this medicine on an empty stomach, about 30 minutes before eating. Take your doses at regular intervals. Do not take your medicine more often than directed. Do not stop taking except on the advice of your doctor or health care team coordinator scheduler. A special MedGuide will be given to you by the pharmacist with each prescription and refill. Be sure to read this information carefully each time. Talk to your awning spreader regarding the use of this medicine in children. Special care may be needed. What side effects may I notice from receiving this medicine? Side effects that you should report to your doctor or health care team coordinator scheduler as soon as possible: allergic reactions like skin rash, itching or hives, swelling of the face, lips, or tongue abnormal production of milk in females breast enlargement in both males and females change in the way you walk difficulty moving, speaking or swallowing drooling, lip smacking, or rapid movements of the tongue excessive sweating fever involuntary or uncontrollable movements of the eyes, head, arms and legs irregular heartbeat or palpitations muscle twitches and spasms unusually weak or tired Side effects that usually do not require medical attention (report to your doctor or health care team coordinator scheduler if they continue or are bothersome): change in sex drive or performance depressed mood diarrhea difficulty sleeping headache menstrual changes restless or nervous What may interact with this medicine? acetaminophen cyclosporine digoxin medicines for blood pressure medicines for diabetes, including insulin medicines for hay fever and other allergies medicines for depression, especially an Monoamine Oxidase Inhibitor (MAOI) medicines for Parkinson's disease, like levodopa medicines for sleep or for pain tetracycline What if I miss a dose? If you miss a dose, take it as soon as you can. If it is almost time for your next dose, take only that dose. Do not take double or extra doses. Where should I keep my medicine? Keep out of the reach of children. Store at room temperature between 20 and 25 degrees C (68 and 77 degrees F). Protect from light. Keep container tightly closed. Throw away any unused medicine after the expiration date. What should I tell my health care provider before I take this medicine? They need to know if you have any of these conditions: breast cancer depression diabetes heart failure high blood pressure kidney disease liver disease Parkinson's disease or a movement disorder pheochromocytoma seizures stomach obstruction, bleeding, or perforation an unusual or allergic reaction to metoclopramide, procainamide, sulfites, other medicines, foods, dyes, or preservatives or trying to get breast-feeding What should I watch for while using this medicine? It may take a few weeks for your stomach condition to start to get better. However, do not take this medicine for longer than 12 weeks. The longer you take this medicine, and the more you take it, the greater your chances are of developing serious side effects. If you are an elderly patient, a female patient, or you have diabetes, you may be at an increased risk for side effects from this medicine. Contact your doctor immediately if you start having movements you cannot control such as lip smacking, rapid movements of the tongue, involuntary or uncontrollable movements of the eyes, head, arms and legs, or muscle twitches and spasms. Patients and their families should watch out for worsening depression or thoughts of suicide. Also watch out for any sudden or severe changes in feelings such as feeling anxious, agitated, panicky, irritable, hostile, aggressive, impulsive, severely restless, overly excited and hyperactive, or not being able to sleep. If this happens, especially at the beginning of treatment or after a change in dose, call your doctor. Do not treat yourself for high fever. Ask your doctor or health care team coordinator scheduler for advice. You may get drowsy or dizzy. Do not drive, use machinery, or do anything that needs mental alertness until you know how this drug affects you. Do not stand or sit up quickly, especially if you are an older patient. This reduces the risk of dizzy or fainting spells. Alcohol can make you more drowsy and dizzy. Avoid alcoholic drinks. You have been given the following additional information: Vomiting (5Y-Adult) Ondansetron Oral disintegrating tablet Metoclopramide Hydrochloride Oral tablet (Electronically signed by Stevan Willams DO 12/31/2016 10:28)
--- NOTE | 2016-12-31 10:29 | ED MED RECONCILIATION SUMMARY ---
Patient: CLIFFORD CHI Medication Reconciliation Report [facility] VisitID: [id number] [address] [place] [address] 21y, F Registration Date/Time: 12/31/2016 Weight: 54.4 kg Height/Length: 64 in. BMI: 20.6 ALLERGIES: No Known Drug Allergy The patient's Home Medications are listed below: CONTINUE TAKING THE FOLLOWING MEDICATIONS: BusPIRone HCl Oral 5 mg, 2x a day Vitamins Oral Zofran Oral 8 mg, daily The source(s) of the original Home Medication information: Not obtained. The following Medications were given to the patient in the Emergency Department: IV NS IV Fluids bolus 0, then 999 mL/hr, administered: 12/31/2016 7:57:00 AM Zofran [IVP] IVP 4 mg, administered: 12/31/2016 8:02:00 AM Ativan [IVP] IVP 1 mg, administered: 12/31/2016 8:08:00 AM Reglan [IVP] IVP 10 mg, administered: 12/31/2016 9:28:00 AM Zofran [IVP] IVP 4 mg, administered: 12/31/2016 9:24:00 AM The following Medications were prescribed to the patient: Take acetaminophen (Tylenol, Datril, etc.) according to label instructions. Available over the counter. -- Stevan Willams DO Zofran (orally disintegrating tablets) 8 mg: take 1 orally every 6 hours as needed for nausea and vomiting. Dispense five (5). No refill. Substitution is permissible. -- Stevan Willams DO Reglan 10 mg tablets: take 1 orally four times daily (before meals and at bedtime). Dispense sixty (60). No refills. Substitution is permissible. -- Stevan Willams DO
--- NOTE | 2016-12-31 10:29 | ED MED RECONCILIATION SUMMARY ---
Patient: CLIFFORD CHI Medication Reconciliation Report [facility] VisitID: [id number] [address] [place] [address] 21y, F Registration Date/Time: 12/31/2016 Weight: 54.4 kg Height/Length: 64 in. BMI: 20.6 ALLERGIES: No Known Drug Allergy The patient's Home Medications are listed below: CONTINUE TAKING THE FOLLOWING MEDICATIONS: BusPIRone HCl Oral 5 mg, 2x a day Vitamins Oral Zofran Oral 8 mg, daily The source(s) of the original Home Medication information: Not obtained. The following Medications were given to the patient in the Emergency Department: IV NS IV Fluids bolus 0, then 999 mL/hr, administered: 12/31/2016 7:57:00 AM Zofran [IVP] IVP 4 mg, administered: 12/31/2016 8:02:00 AM Ativan [IVP] IVP 1 mg, administered: 12/31/2016 8:08:00 AM Reglan [IVP] IVP 10 mg, administered: 12/31/2016 9:28:00 AM Zofran [IVP] IVP 4 mg, administered: 12/31/2016 9:24:00 AM The following Medications were prescribed to the patient: Take acetaminophen (Tylenol, Datril, etc.) according to label instructions. Available over the counter. -- Stevan Willams DO Zofran (orally disintegrating tablets) 8 mg: take 1 orally every 6 hours as needed for nausea and vomiting. Dispense five (5). No refill. Substitution is permissible. -- Stevan Willams DO Reglan 10 mg tablets: take 1 orally four times daily (before meals and at bedtime). Dispense sixty (60). No refills. Substitution is permissible. -- Stevan Willams DO
== END 2016-12-31 09:34 | disposition home or self-care (01) ==
LOC: ED SRH 07:22
DX: O21.8 Other vomiting complicating pregnancy (principal); Z3A.01 Less than 8 weeks gestation of pregnancy; Z79.899 Other long term (current) drug therapy
CPT/HCPCS: 90004; 90100; 90197; 90469; 92235; 95059

== ENCOUNTER 2017-01-23 14:09 | Outpatient (CLI) | payer OTHER | END 2017-01-23 23:00 | LOC: LAB SRH 14:09 | DX: Z34.02 Encounter for supervision of normal first pregnancy, second trimester (principal) | CPT/HCPCS: 90039; 90074; 91162; 91163 ==